=== PATIENT | male | born 1965 | race Caucasian/White ===

== ENCOUNTER → 2019-04-25 10:53 | Outpatient (BNVA) | payer OTHER, SELFPAY | PROVIDERS: Family Provider Family Medicine; PCP Nurse Practitioner Family; Visit Provider Internal Medicine Cardiovascular Disease | DX: I10 Essential (primary) hypertension (principal) | CPT/HCPCS: 80048; 83880 ==

== ENCOUNTER 2020-06-20 11:02 | Emergency (ER) | payer OTHER, MEDICARE, SELFPAY ==
[2020-06-20] VITALS (7 sets, daily range): BP systolic 117–153; BP diastolic 89–102; PULSE 86–89; RESP 12–18; TEMP 36.2; O2SAT 97–100; BMI 26.6
--- NOTE | 2020-06-20 11:20 | XR_ITS ---
WS: [id number] Portable AP upright chest, 06/20/2020 Clinical Data: sob Comparison: PA and lateral chest, 06/01/2018. Findings: No nodules, masses or effusions are seen. The heart is normal. The pulmonary vascularity is not increased. No pneumonia or pneumothorax is seen. Monitor leads are on the chest wall. XR/XR chest 1V portable [id number] Impression: Negative chest.
--- NOTE | 2020-06-20 11:20 | ECG_ITS ---
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 Measurements Intervals [place] Rate: 85 P: 68 CT: 162 QRS: 58 QRSD: 106 T: 175 QT: 383 QTc: 457 Interpretive Statements SINUS RHYTHM POSSIBLE LEFT ATRIAL ENLARGEMENT [-0.1mV P WAVE IN V1/V2] LEFT VENTRICULAR HYPERTROPHY AND ST-T CHANGE [VOLTAGE CRITERIA PLUS ST/T ABNORMALITY] Compared to ECG 05/31/2018 18:01:19 Ventricular premature complex(es) no longer present ST (T wave) deviation still present Electronically Signed On 06-20-2020 17:13:18 MECHANICAL MANUFACTURING TECHNICIAN by Miguel Colin M.D. [email or web address] [id number]
[2020-06-20 11:44] LABS: Basophils % 0.4 %; Eosinophils # 0.1 10^3/uL (0.0-0.8); Eosinophils % 1.3 %; Hematocrit 42.4 % (42.0-52.0); Hemoglobin 14.2 g/dL (11.7-16.6); Lymphocytes # 1.6 10^3/uL (0.8-4.8); Lymphocytes % 19.3 %; Mean Corpuscular HGB Conc 33.5 g/dL (30.0-36.0); Mean Corpuscular Hemoglobin 28.7 pg (28.0-34.0); Mean Corpuscular Volume 85.7 fL (80-94); Monocytes # 0.4 10^3/uL (0.2-0.9); Monocytes % 5.1 %; Neutrophils # 6.28 10^3/uL (1.8-7.7); Neutrophils % 73.8 %; Nucleated Red Blood Cells % 0 %; Platelet Count 187 10^3/cmm (130-400); Red Blood Count 4.95 10^6/uL (4.1-5.3); Red Cell Distribution Width 14.6 % (12.1-15.1); White Blood Count 8.5 10^3/uL (4.0-10.0)
[2020-06-20 12:02] LABS: INR 1.05 (0.8-1.2)
[2020-06-20 12:10] LABS: Alanine Aminotransferase 13 U/L (0-41); Albumin Level 3.9 g/dL (3.5-5.2); Alkaline Phosphatase 78 IU/L (40-130); Anion Gap 14.3 (5-19); Aspartate Amino Transferase 18 U/L (0-40); Blood Urea Nitrogen 19 mg/dL (6-20); Calcium 9.5 mg/dL (8.5-10.5); Carbon Dioxide 25 mmol/L (22-29); Chloride 100 mmol/L (98-107); Globulin 3.6 g/dL (1.3-4.6); Glomerular Filtration Rate 57.1 mL/min (90-130); Glucose 162 mg/dL (65-115); NT Pro B Type Natriuretic Pept 18913 pg/mL (0-125); Osmolality Calculated 288 mOsm/kg (285-295); Potassium 3.3 mmol/L (3.5-5.1); Sodium 136 mmol/L (136-145); Total Bilirubin 1.3 mg/dL (0.15-1.2); Total Protein 7.5 g/dL (6.6-8.7)
--- NOTE | 2020-06-20 12:21 | W.ED.SOB ---
HPI - SOB/Dyspnea General: Chief Complaint: Shortness of Breath/Dyspnea Stated Complaint: SOB Time Seen by Provider: 06/20/20 11:12 Source: patient Mode of arrival: ambulatory Limitations: no limitations History of Present Illness: HPI Narrative: 54-year-old male with history of CHF, COPD, pulmonary emboli, cardiomyopathy complaining of worsening shortness of breath, orthopnea and dyspnea on exertion over the past 3 to 4 days. No weight gain. No fever. He does have a productive cough?dark-colored sputum. No pleuritic chest pain. He has self discontinued Eliquis a few months ago. He also has not been taking his diuretics or carvedilol regularly. Records from the [place] show that all his prescriptions have sometime ago. Denies chest pain. No swelling. He has occasional wheezing. Symptoms are much worse with laying down and exertion. He took a double dose of Lasix yesterday, but did not have any relief. MD elicited complaint: shortness of breath and cough Onset (ago): day(s) Timing: constant Exacerbating factors: lying flat, exertion and coughing Associated symptoms: Reports chest congestion and orthopnea; Deny chest pain, fever(s), hemoptysis, lightheadedness, nausea, polyuria or vomiting Review of Systems General: Reports: 10 or more systems reviewed and unremarkable except in HPI and below Const: Denies: fever(s), chills, body aches or change in appetite Card: Reports: dyspnea on exertion and orthopnea; Denies: chest pain, irregular heart rhythm, edema, swelling of feet/ankles or lightheadedness Resp: Reports: dyspnea, productive cough, wheezing, change in phlegm color and chest congestion; Denies: pain on inspiration or hemoptysis GI: Denies: nausea, vomiting, heartburn or diarrhea Musc: Denies: neck pain or back pain Neuro: Denies: headache(s), numbness in extremities or weakness in extremities Endo: Denies: polyuria PFSH ED PFSH: Medical History Cardiomyopathy GERD (gastroesophageal reflux disease) HTN (hypertension) Pulmonary thromboembolism Surgical History History of back surgery (~1997) Family History Other Diabetes Hypertension Social History Smoking and tobacco status: current every day smoker Physical Exam Const: COMMON NORMALS: no acute distress, average body habitus and patient oriented x3 GENERAL APPEARANCE: cooperative and ill appearing; not diaphoretic HENMT: COMMON NORMALS: normocephalic HEAD & SCALP: normal to inspection and normocephalic FACE & SINUS: normal facial exam and face symmetric Eye: COMMON NORMALS: Equal, round and reactive pupils present, EOMs intact bilaterally, conjunctivae normal and no scleral icterus GENERAL EYE: appearance normal, both eyes and all related structures CONJUNCTIVA: Yes conjunctivae normal PUPIL: Yes Equal, round and reactive pupils present Resp: EFFORT & INSPECTION: Yes able to speak in complete sentences, Yes tachypneic, No respiratory distress, Yes labored, No stridor, No Actively coughing, No uses accessory muscles, No audible wheezes, No tripod positioning and No prolonged expiratory phase Cardio: COMMON NORMALS: regular rate, regular rhythm, S1 normal heart sound present and S2 normal heart sound present JUGULAR VENOUS DISTENTION: no JVD RATE: regular rate RHYTHM: regular rhythm HEART SOUNDS: S1 normal heart sound present and S2 normal heart sound present GI: COMMON NORMALS: Normal to inspection, nondistended, normoactive bowel sounds present INSPECTION: Yes normal to inspection AUSCULTATION: Yes normoactive bowel sounds PALPATION: Yes Soft to palpation, No Tenderness to palpation present (GI) and No Guarding due to palpation present (GI) : COMMON NORMALS: Yes no CVA tenderness BLADDER/KIDNEY EXAM: Yes no CVA tenderness Back/Pelvis: COMMON NORMALS: no CVA tenderness and thoracic and lumbar spine normal to inspection Extremity: COMMON NORMALS: no clubbing, cyanosis or edema GENERAL: Yes normal exam except as noted and No edema Neuro: COMMON NORMALS: patient oriented x3, no focal motor deficits and no sensory deficits noted Skin: COMMON NORMALS: no rashes or lesions noted, no wounds, turgor normal, no jaundice, no petechiae and no mottling GENERAL SKIN EXAM: no rashes or lesions noted and turgor normal Course Vital Signs: Vital signs: Vital Signs Temperature 97.1 F L 06/20/20 11:12 Pulse Rate 89 06/20/20 16:18 Respiratory Rate 18 06/20/20 16:18 Blood Pressure 117/89 06/20/20 16:18 Pulse Oximetry 98 06/20/20 16:18 MDM - SOB/Dyspnea MDM Narrative: Medical decision making narrative: 54-year-old male with history of pulmonary emboli, CHF, noncompliant with medications presenting with increased shortness of breath, orthopnea over the past 3 to 4 days. Echo 05/31/2018; EF 15 to 20%, severe diffuse hypokinesis EKG; normal sinus rhythm with rate of 85, MI 162, QRS 106, QTc 425, normal axis, LVH, deep T wave inversions in the inferior and lateral leads, ST depression in II and aVF. No previous EKG available for comparison, however cardiology note from 08/22/2019 describes similar changes in the inferior lateral leads as well as LVH, left atrial enlargement. CTA will be done to establish if there is residual or new pulmonary emboli since he has been off of his anticoagulation. Cardiac enzymes, BNP, IV diuresis if necessary. At this time he is not in any respiratory distress, is oxygenating well on room air, He also has a history of COPD and has had increased dark-colored phlegm production and wheezing. We will treat with IV steroids and p.o. antibiotics for possible COPD exacerbation. Chest x-ray did not show any acute infiltrates, effusions, or other acute changes compared to previous. IV Lasix, 40 mgX1, had good diuresis and improvement in dyspnea. Serial troponins stable. Will refill his meds for 30 days, instructed to follow-up with his PCP in the next 3 to 5 days Strict instructions to return if he develops fever, worsening difficulty breathing, chest pain, palpitations, or any other concerning symptoms. Differential Diagnosis: Shortness of Breath Differential Diagnosis: Likely acute exacerbation of chronic obstructive airways disease, congestive heart failure, community acquired pneumonia, asthma with exacerbation and pulmonary embolism Medical Records: Attestation: I reviewed the patient's medical records. Lab Data: Attestation: I reviewed the patient's lab results. Labs: Lab Results 06/20/20 06/20/20 06/20/20 Range/Units 11:35 11:35 11:35 WBC 8.5 (4.0-10.0) 10^3/ uL RBC 4.95 (4.1-5.3) 10^6/u L Hgb 14.2 (11.7-16.6) g/dL Hct 42.4 (42.0-52.0) % MCV 85.7 (80-94) fL MCH 28.7 (28.0-34.0) pg MCHC 33.5 (30.0-36.0) g/dL RDW 14.6 (12.1-15.1) % Plt Count 187 (130-400) 10^3/c mm MPV 10.0 (7.4-10.4) fL Neut % (Auto) 73.8 % Lymph % (Auto) 19.3 % [place] % (Auto) 5.1 % Eos % (Auto) 1.3 % Baso % (Auto) 0.4 % Neut # (Auto) 6.28 (1.8-7.7) 10^3/u L Lymph # (Auto) 1.6 (0.8-4.8) 10^3/u L [place] # (Auto) 0.4 (0.2-0.9) 10^3/u L Eos # (Auto) 0.1 (0.0-0.8) 10^3/u L Baso # (Auto) 0.0 (0.0-0.1) 10^3/u L Nucleated RBC % (a uto) 0 % Nucleated RBCs # 0.0 /100WBC PT 14.10 (12.1-14.9) SECO NDS INR 1.05 (0.8-1.2) Sodium 136 (136-145) mmol/L Potassium 3.3 L (3.5-5.1) mmol/L Chloride 100 (98-107) mmol/L Carbon Dioxide 25 (22-29) mmol/L Anion Gap 14.3 (5-19) BUN 19 (6-20) mg/dL Creatinine 1.3 H (0.7-1.2) mg/dL GFR Calculation 57.1 L (90-130) mL/min Glucose 162 H (65-115) mg/dL Calculated Osmolal ity 288 (285-295) mOsm/k g Calcium 9.5 (8.5-10.5) mg/dL Magnesium (1.7-2.3) mg/dL Total Bilirubin 1.3 H (0.15-1.2) mg/dL AST 18 (0-40) U/L ALT 13 (0-41) U/L Alkaline Phosphata se 78 (40-130) IU/L Troponin T Gen 5 n g/L (0-15) ng/L Troponin T 120 Min [place] (0-15) ng/L Delta Troponin T (0-10) ABS# NT-Pro-B Natriuret Pep 51999 H (0-125) pg/mL Total Protein 7.5 (6.6-8.7) g/dL Albumin 3.9 (3.5-5.2) g/dL Globulin 3.6 (1.3-4.6) g/dL 06/20/20 06/20/20 06/20/20 Range/Units 12:21 12:22 14:22 WBC (4.0-10.0) 10^3/ uL RBC (4.1-5.3) 10^6/u L Hgb (11.7-16.6) g/dL Hct (42.0-52.0) % MCV (80-94) fL MCH (28.0-34.0) pg MCHC (30.0-36.0) g/dL RDW (12.1-15.1) % Plt Count (130-400) 10^3/c mm MPV (7.4-10.4) fL Neut % (Auto) % Lymph % (Auto) % [place] % (Auto) % Eos % (Auto) % Baso % (Auto) % Neut # (Auto) (1.8-7.7) 10^3/u L Lymph # (Auto) (0.8-4.8) 10^3/u L [place] # (Auto) (0.2-0.9) 10^3/u L Eos # (Auto) (0.0-0.8) 10^3/u L Baso # (Auto) (0.0-0.1) 10^3/u L Nucleated RBC % (a uto) % Nucleated RBCs # /100WBC PT (12.1-14.9) SECO NDS INR (0.8-1.2) Sodium (136-145) mmol/L Potassium (3.5-5.1) mmol/L Chloride (98-107) mmol/L Carbon Dioxide (22-29) mmol/L Anion Gap (5-19) BUN (6-20) mg/dL Creatinine (0.7-1.2) mg/dL GFR Calculation (90-130) mL/min Glucose (65-115) mg/dL Calculated Osmolal ity (285-295) mOsm/k g Calcium (8.5-10.5) mg/dL Magnesium 1.5 L (1.7-2.3) mg/dL Total Bilirubin (0.15-1.2) mg/dL AST (0-40) U/L ALT (0-41) U/L Alkaline Phosphata se (40-130) IU/L Troponin T Gen 5 n g/L 37 H (0-15) ng/L Troponin T 120 Min [place] 36.15 H (0-15) ng/L Delta Troponin T -0.85 L (0-10) ABS# NT-Pro-B Natriuret Pep (0-125) pg/mL Total Protein (6.6-8.7) g/dL Albumin (3.5-5.2) g/dL Globulin (1.3-4.6) g/dL Discharge Plan Discharge Patient Disposition: Home Clinical Impression: Dyspnea due to congestive heart failure Cardiomyopathy Qualifiers: Cardiomyopathy type: unspecified Qualified Code(s): I42.9 - Cardiomyopathy, unspecified Congestive heart failure Qualifiers: Heart failure type: systolic Heart failure chronicity: acute on chronic Qualified Code(s): I50.23 - Acute on chronic systolic (congestive) heart failure Condition: Stable Prescriptions: New carvedilol 25 mg tablet 25 mg PO BID Qty: 60 RF: 0 Lasix 40 mg tablet 40 mg PO QAM Qty: 30 RF: 0 Entresto 24-26 mg tablet 1 tab PO BID Qty: 60 RF: 0 omeprazole 40 mg capsule,delayed release(DR/EC) 40 mg PO DAILY Qty: 30 RF: 0 spironolactone 25 mg tablet 25 mg PO QAM Qty: 30 RF: 0 Continued aspirin 81 mg Tablet,Delayed Release (Dr/Ec) 81 mg PO QAM RF: 0 Held Eliquis 5 mg tablet See Rx Instructions .ROUTE .COMPLEX RF: 0 Hold Instructions: hold until PCP follwowup Discontinued omeprazole 20 mg capsule,delayed release(DR/EC) 20 mg PO QAM RF: 0 carvedilol 25 mg tablet See Rx Instructions .ROUTE .COMPLEX RF: 0 furosemide [Lasix] 40 mg Tablet See Rx Instructions .ROUTE .COMPLEX RF: 0 spironolactone 25 mg Tablet See Rx Instructions .ROUTE .COMPLEX RF: 0 naproxen sodium [Aleve] 220 mg Tablet 440 mg PO PRN RF: 0 Entresto 24-26 mg tablet See Rx Instructions .ROUTE .COMPLEX RF: 0 Discharge Orders: Discharge ED (Routine); Ordered 06/20/20 Ordered By: Carol Reyes Referrals: Joao Hendrix FNP [Primary Care Provider] - Discharge Diet: Low Salt Discharge Activity: Increase activity as tolerated Patient Instructions: Heart Failure (ED) Activity Restrictions/Additional Instructions: Make sure to schedule follow-up appoint with your primary care doctor in the next 3 to 5 days. Take your medication every day as directed. Return immediately to the ER if you develop any chest pain, or if your shortness of breath worsens, you develop palpitations or fever, nausea, vomiting or any other concerning changes. Coding Level of Care Code ED Pet Counselor for Jasmina Fwd Exam Comprehensive
--- NOTE | 2020-06-20 12:31 | CT_ITS ---
WS: [id number] CTA OF THE CHEST WITH PULMONARY EMBOLISM PROTOCOL TECHNIQUE: High-resolution contrast enhanced CTA of the chest with coronal and sagittal reformatted i mages with pulmonary embolism protocol. MIP images are also reviewed. CLINICAL INFORMATION: hx of PE, worsening SOB, non compliant w/anticoag COMPARISON: CTA chest May 2018 DLP: 676.[address] scans at [facility] use at least one of these dose optimization techniques: automat ed exposure control; mA and/or kV adjustment per patient size (includes targeted exams where dose is matched to clinical indication); or iterative reconstruction. FINDINGS: Proximal main pulmonary arteries are normal. Normal segmental and subsegmental pulmonary arteries. No evidence of pulmonary embolus. Mild chronic emphysematous changes. No acute pulmonary infiltrates. No consolidation or pleural fluid . No focal pneumonia. A few prominent mediastinal and AP window lymph nodes unchanged likely reactive . No axillary lymphadenopathy. Adrenal glands are normal. Hypertrophic changes thoracic spine. CT/CT angio chest PE protcl [id number] IMPRESSION: 1. No evidence of pulmonary embolus. 2. Mild chronic emphysematous changes. Lungs are well aerated. No acute pulmon bonnie infiltrates. 3. Prominent anterior mediastinal and AP window lymph nodes unchanged from pre vious and likely reactive. Attempted Carol Reyes MD at 06/20/2020 1:16 PM.
[2020-06-20] MEDS: doxycycline 100 mg Tablet PO (12:32)
[2020-06-20] MEDS: potassium chloride oral liq 20 mEq/15 mL UDC 40 MEQ PO (12:32)
[2020-06-20] MEDS: FUROsemide 10 mg/mL SDV 4mL 40 MG IVP (12:39)
--- NOTE | 2020-06-20 12:54 | PC.PHAR ---
pts states the pt doesnt always take his medications-pts states the pt dced his eliquis a few months ago without talking to his dr-pts states the pt sometimes takes his lasix and spironolactone [place] medication as medications-rx written on 08/22/2019 for carvedilol 25mg bid the pt states he only takes once a day sometimes-entresto written on 11/28/19 for 1 tab bid-pt states he takes one tab once a day sometimes-
[2020-06-20] MEDS: iohexol 350 mg/mL 100 mL Btl IV (13:00)
[2020-06-20 13:09] LABS: Magnesium 1.5 mg/dL (1.7-2.3)
[2020-06-20 13:14] LABS: Troponin T (5th) Once 37 ng/L (0-15)
[2020-06-20 14:45] LABS: Troponin 5 2HR 36.15 ng/L (0-15)
[2020-06-20 14:48] LABS: Troponin 5 2HR Delta -0.85 ABS# (0-10)
--- NOTE | 2020-06-20 15:26 | ECG_ITS ---
[facility] Test Date: 2020-06-20 Pat Name: Hakan Black Department: Room: Gender: Male New Patient Escort: : 1965 Requested By: Carol Reyes Order Number: [id number] Funez MD: Miguel Colin M.D. 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 [id number]
== END 2020-06-20 16:20 | disposition home or self-care (01) ==
PROVIDERS: Emergency Provider Family Medicine; PCP Nurse Practitioner Family
DX: I11.0 Hypertensive heart disease with heart failure (principal); I50.23 Acute on chronic systolic (congestive) heart failure; I42.9 Cardiomyopathy, unspecified; R06.00 Dyspnea, unspecified; Z79.82 Long term (current) use of aspirin; Z79.01 Long term (current) use of anticoagulants; F17.210 Nicotine dependence, cigarettes, uncomplicated
CPT/HCPCS: 36415; 71045; 71275; 80053; 83735; 83880; 84484; 85025; 85610; 93005; 96374; 96375; 99284; J1940; J2930; J3475; Q9967

== ENCOUNTER 2020-07-10 01:11 | Emergency (ER) | payer OTHER, MEDICARE, SELFPAY ==
[2020-07-10 01:28] VITALS: BP 145/101; PULSE 90; RESP 18; TEMP 36.9; O2SAT 99; BMI 25.0
--- NOTE | 2020-07-10 01:33 | ECG_ITS ---
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 Measurements Intervals [place] Rate: 98 P: 68 DE: 132 QRS: 24 QRSD: 104 T: 126 QT: 383 QTc: 489 Interpretive Statements SINUS RHYTHM WITH OCCASIONAL VENTRICULAR PREMATURE COMPLEXES POSSIBLE LEFT ATRIAL ENLARGEMENT [-0.1mV P WAVE IN V1/V2] LEFT VENTRICULAR HYPERTROPHY AND ST-T CHANGE [VOLTAGE CRITERIA PLUS ST/T ABNORMALITY] Compared to ECG 06/20/2020 13:35:15 Ventricular premature complex(es) now present ST (T wave) deviation still present Electronically Signed On 07-10-2020 19:47:43 CDT by Marek Guadalupe M.D. [id number]
--- NOTE | 2020-07-10 01:33 | XR_ITS ---
WS: [id number] PORTABLE CHEST HISTORY: sob COMPARISON: 06/20/2020 Mild expansion of the lungs. There are new scattered areas of interstitial thickening and subtle opac ifications. Probably due to pneumonitis. No dense consolidation or pneumonia. No pleural effusion or pneumothorax. Cardiac size: Normal. Mediastinum/Aorta: Normal mediastinum. No osseous abnormality seen. XR/XR chest 1V portable [id number] IMPRESSION: New interstitial thickening and subtle opacifications. Probably related to pneu monitis or mild edema.
--- NOTE | 2020-07-10 01:37 | ED_ITS ---
HPI - SOB/Dyspnea General: Chief Complaint: Shortness of Breath/Dyspnea Stated Complaint: SOB Time Seen by Provider: 07/10/20 01:12 Source: patient Mode of arrival: ambulatory Limitations: no limitations History of Present Illness: HPI Narrative: 54-year-old male 54-year-old male has a history of CHF, noncompliant with his medicines. He states he been taking 40 mg of Lasix daily states that he has had shortness of breath especially at night when he lays flat. Patient is currently in no distress here and is 1% on room air. Denies any chest pain. States has had no fever or cough. He states that symptoms are mainly when he lays flat. MD elicited complaint: shortness of breath Associated symptoms: Deny abdominal pain, chest pain, fever(s), nausea or vomiting Review of Systems Const: Denies: fever(s), chills, body aches or change in appetite Eyes: Denies: blurry vision or eye discomfort ENMT: Denies: throat pain or dental pain Card: Denies: chest pain Resp: Reports: dyspnea GI: Denies: abdominal pain, nausea, vomiting or diarrhea : Denies: dysuria Musc: Denies: neck pain or back pain Skin/Breast: Denies: rash Neuro: Denies: headache(s) Psych: Denies: depression Yevgeniy/Lymph: Denies: easy bruising All/Imm: Denies: urticaria PFSH ED PFSH: Medical History Cardiomyopathy GERD (gastroesophageal reflux disease) HTN (hypertension) Pulmonary thromboembolism Surgical History History of back surgery (~1997) Family History Other Diabetes Hypertension Social History Smoking and tobacco status: current every day smoker Physical Exam Const: COMMON NORMALS: no acute distress, patient oriented x3 and healthy appearing HENMT: COMMON NORMALS: normocephalic and atraumatic HEAD & SCALP: normocephalic and atraumatic Eye: COMMON NORMALS: Equal, round and reactive pupils present and EOMs intact bilaterally PUPIL: Yes Equal, round and reactive pupils present Neck/C-Spine: COMMON NORMALS: full ROM and supple Chest: COMMONS NORMALS: normal inspection of the chest and normal palpation of entire chest wall Resp: COMMON NORMALS: normal respiratory effort, No retractions, No use of accessory muscles and clear to auscultation bilaterally AUSCULTATION: clear t o auscultation bilaterally Cardio: COMMON NORMALS: regular rate, regular rhythm and No murmurs present (Cardio) RATE: regular rate RHYTHM: regular rhythm GI: COMMON NORMALS: Normal to inspection, nondistended, normoactive bowel sounds present, Soft to palpation, non-tender and no masses PALPATION: Yes Soft to palpation Extremity: COMMON NORMALS: normal to inspection and full ROM Neuro: COMMON NORMALS: patient oriented x3, moves all extremities and no focal motor deficits Psych: COMMON NORMALS: mental status grossly normal, Normal thought process present and cooperative THOUGHT PROCESS: Normal thought process present Skin: COMMON NORMALS: no rashes or lesions noted and no wounds GENERAL SKIN EXAM: no rashes or lesions noted Course Vital Signs: Vital signs: Vital Signs Temperature 98.4 F 07/10/20 01:28 Pulse Rate 90 07/10/20 01:28 Respiratory Rate 18 07/10/20 01:28 Blood Pressure 145/101 07/10/20 01:28 Pulse Oximetry 99 07/10/20 01:28 MDM - SOB/Dyspnea MDM Narrative: Medical decision making narrative: CoMela is a 54-year-old male has a long history of congestive heart failure. He states he feels improved here after IV Lasix. Patient's pulse ox has been in the upper 90s the whole time here and has been in no respiratory distress. X-ray shows no increased pulmonary edema. We will increase his Lasix from 40 to 80 mg a day. He is to take daily weights he has increasing shortness of breath or weight gain he is return to ER immediately. He is to follow-up with cardiology as scheduled in 2 weeks. He understands agrees to plan. Lab Data: Labs: Lab Results 07/10/20 07/10/20 Range/Units 01:35 01:35 WBC 9.5 (4.0-10.0) 10^3/ uL RBC 4.71 (4.1-5.3) 10^6/u L Hgb 13.4 (11.7-16.6) g/dL Hct 40.6 L (42.0-52.0) % MCV 86.2 (80-94) fL MCH 28.5 (28.0-34.0) pg MCHC 33.0 (30.0-36.0) g/dL RDW 14.6 (12.1-15.1) % Plt Count 199 (130-400) 10^3/c mm MPV 9.4 (7.4-10.4) fL Neut % (Auto) 76.3 % Lymph % (Auto) 17.1 % [place] % (Auto) 4.2 % Eos % (Auto) 1.8 % Baso % (Auto) 0.3 % Neut # (Auto) 7.26 (1.8-7.7) 10^3/u L Lymph # (Auto) 1.6 (0.8-4.8) 10^3/u L [place] # (Auto) 0.4 (0.2-0.9) 10^3/u L Eos # (Auto) 0.2 (0.0-0.8) 10^3/u L Baso # (Auto) 0.0 (0.0-0.1) 10^3/u L Nucleated RBC % (a uto) 0 % Nucleated RBCs # 0.0 /100WBC Sodium 136 (136-145) mmol/L Potassium 3.3 L (3.5-5.1) mmol/L Chloride 99 (98-107) mmol/L Carbon Dioxide 26 (22-29) mmol/L Anion Gap 14.3 (5-19) BUN 17 (6-20) mg/dL Creatinine 1.3 H (0.7-1.2) mg/dL GFR Calculation 57.1 L (90-130) mL/min Glucose 152 H (65-115) mg/dL Calculated Osmolal ity 287 (285-295) mOsm/k g Calcium 9.0 (8.5-10.5) mg/dL Total Bilirubin 1.0 (0.15-1.2) mg/dL AST 24 (0-40) U/L ALT 32 (0-41) U/L Alkaline Phosphata se 93 (40-130) IU/L NT-Pro-B Natriuret Pep 21238 H (0-125) pg/mL Total Protein 7.0 (6.6-8.7) g/dL Albumin 3.7 (3.5-5.2) g/dL Globulin 3.3 (1.3-4.6) g/dL Imaging Data^: CXR: Attestation: I personally reviewed and interpreted this imaging study as follows: My impression: no acute abnormality EKG Data^: EKG 1: Attestation: I personally reviewed and interpreted this EKG as follows: EKG Interpretation Date: 07/10/20 EKG interpretation time: 01:38 Interpretation: nsr hr [address] or t wave abnormalities qrs 104 qtc 438 Discharge Plan Discharge Patient Disposition: Home Clinical Impression: Congestive heart failure Qualifiers: Heart failure type: unspecified Heart failure chronicity: acute on chronic Qualified Code(s): I50.9 - Heart failure, unspecified Condition: Stable Prescriptions: Changed Lasix 40 mg tablet 80 mg PO QAM Qty: 30 RF: 0 No Action Eliquis 5 mg tablet See Rx Instructions .ROUTE .COMPLEX RF: 0 Hold Instructions: hold until PCP follwowup aspirin 81 mg Tablet,Delayed Release (Dr/Ec) 81 mg PO QAM RF: 0 carvedilol 25 mg tablet 25 mg PO BID Qty: 60 RF: 0 Entresto 24-26 mg tablet 1 tab PO BID Qty: 60 RF: 0 omeprazole 40 mg capsule,delayed release(DR/EC) 40 mg PO DAILY Qty: 30 RF: 0 spironolactone 25 mg tablet 25 mg PO QAM Qty: 30 RF: 0 Discharge Orders: Discharge ED (Routine); Ordered 07/10/20 Ordered By: Aniket García Referrals: Joao Hendrix FNP [Primary Care Provider] - Silvana Verma MD [Physician] - 1-3 days Discharge Diet: Advance as tolerated Discharge Activity: Resume usual activity Patient Instructions: Heart Failure (ED) Coding Level of Care Code ED Windows Application Packager for Chg Fwd Exam Comprehensive
[2020-07-10 01:44] LABS: Basophils % 0.3 %; Eosinophils # 0.2 10^3/uL (0.0-0.8); Eosinophils % 1.8 %; Hematocrit 40.6 % (42.0-52.0); Hemoglobin 13.4 g/dL (11.7-16.6); Lymphocytes # 1.6 10^3/uL (0.8-4.8); Lymphocytes % 17.1 %; Mean Corpuscular Hemoglobin 28.5 pg (28.0-34.0); Mean Corpuscular Volume 86.2 fL (80-94); Mean Platelet Volume 9.4 fL (7.4-10.4); Monocytes # 0.4 10^3/uL (0.2-0.9); Monocytes % 4.2 %; Neutrophils # 7.26 10^3/uL (1.8-7.7); Neutrophils % 76.3 %; Nucleated Red Blood Cells % 0 %; Platelet Count 199 10^3/cmm (130-400); Red Blood Count 4.71 10^6/uL (4.1-5.3); Red Cell Distribution Width 14.6 % (12.1-15.1); White Blood Count 9.5 10^3/uL (4.0-10.0)
[2020-07-10] MEDS: FUROsemide 10 mg/mL SDV 10mL 80 MG IVP (01:50)
[2020-07-10 02:07] LABS: Alanine Aminotransferase 32 U/L (0-41); Albumin Level 3.7 g/dL (3.5-5.2); Alkaline Phosphatase 93 IU/L (40-130); Anion Gap 14.3 (5-19); Aspartate Amino Transferase 24 U/L (0-40); Blood Urea Nitrogen 17 mg/dL (6-20); Carbon Dioxide 26 mmol/L (22-29); Chloride 99 mmol/L (98-107); Globulin 3.3 g/dL (1.3-4.6); Glomerular Filtration Rate 57.1 mL/min (90-130); Glucose 152 mg/dL (65-115); NT Pro B Type Natriuretic Pept 24698 pg/mL (0-125); Osmolality Calculated 287 mOsm/kg (285-295); Potassium 3.3 mmol/L (3.5-5.1); Sodium 136 mmol/L (136-145)
[2020-07-10 03:02] VITALS: BP 142/118; PULSE 96; RESP 16; O2SAT 99
== END 2020-07-10 03:00 | disposition home or self-care (01) ==
PROVIDERS: Emergency Provider Emergency Medicine; PCP Nurse Practitioner Family
DX: I11.0 Hypertensive heart disease with heart failure (principal); I50.9 Heart failure, unspecified; Z79.01 Long term (current) use of anticoagulants; Z79.82 Long term (current) use of aspirin; F17.210 Nicotine dependence, cigarettes, uncomplicated
CPT/HCPCS: 71045; 80053; 83880; 85025; 93005; 96374; 99283; J1940

== ENCOUNTER → 2020-07-31 16:23 | Outpatient (BNVA) | payer OTHER, MEDICARE, SELFPAY | PROVIDERS: PCP Nurse Practitioner Family; Visit Provider Internal Medicine Cardiovascular Disease | DX: I42.9 Cardiomyopathy, unspecified (principal); R06.00 Dyspnea, unspecified; I10 Essential (primary) hypertension; I26.99 Other pulmonary embolism without acute cor pulmonale; K21.9 Gastro-esophageal reflux disease without esophagitis; F17.200 Nicotine dependence, unspecified, uncomplicated | CPT/HCPCS: 80048; 83735; 83880 ==

== ENCOUNTER → 2020-08-21 08:48 | Outpatient (BNVA) | payer OTHER, MEDICARE, SELFPAY | PROVIDERS: PCP Nurse Practitioner Family; Visit Provider Internal Medicine Cardiovascular Disease | DX: I10 Essential (primary) hypertension (principal); I42.9 Cardiomyopathy, unspecified | CPT/HCPCS: 80048; 83735; 83880 ==

== ENCOUNTER → 2020-09-12 09:22 | Outpatient (BNVA) | payer OTHER, MEDICARE, SELFPAY | PROVIDERS: PCP Nurse Practitioner Family; Visit Provider Internal Medicine Cardiovascular Disease | DX: I10 Essential (primary) hypertension (principal); I42.9 Cardiomyopathy, unspecified | CPT/HCPCS: 80048; 83735; 83880 ==

== ENCOUNTER 2020-09-23 14:31 | Outpatient (CLI) | payer OTHER, MEDICARE, SELFPAY ==
--- NOTE | 2020-09-23 15:00 | USCV_ITS ---
Hakan Black Age: 54 Gender: M : 1965 Exam Date: 09/23/2020 14:53 Ordering Phys: Silvana Verma MD ([email or web address]) Technologist: Steve Emanuel Exam Location: [facility] [place] Indication: CHF BP: 150 / 80 HR: 84 Rhythm: Sinus Technical Quality: Adequate MEASUREMENTS (Male / Female) Normal Values 2D ECHO LV Diastolic Diameter PLAX 6.8 cm 4.2 - 5.9 / 3.9 - 5.3 cm LV Systolic Diameter PLAX 5.7 cm IVS Diastolic Thickness 1.1 cm 0.6 - 1.0 / 0.6 - 0.9 cm IVS Systolic Thickness 1.2 cm LVPW Diastolic Thickness 1.1 cm 0.6 - 1.0 / 0.6 - 0.9 cm LVPW Systolic Thickness 1.5 cm LVOT Diameter 2.1 cm LV Ejection Fraction 2D Teich 33.5 % LV Ejection Fraction MOD 2C 19.5 % LV Ejection Fraction 2C AL 17.5 % LA Diameter 3.8 cm LA Width 3.7 cm LA Height 5.6 cm RA Width 3.4 cm RA Height 4.6 cm Aorta at Sinotubular Diameter 2.9 cm DOPPLER AV Peak Velocity 113.0 cm/s LVOT Peak Velocity 53.0 cm/s AV Area Cont Eq vti 1.6 cm squared AV Area Cont Eq pk 1.6 cm squared MV Area PHT 5.0 cm squared Mitral E to A Ratio 2.6 MV E' Velocity 32.5 cm/s Mitral E to MV E' Ratio 16.2 Mitral E to LV E' Lateral Ratio 15.0 Mitral E to LV E' Septal Ratio 18.1 TR Peak Velocity 241.0 cm/s TR Peak Gradient 23.2 mmHg TV Peak E Velocity 93.0 cm/s Right Atrial Pressure 3.0 mmHg Pulmonary Artery Systolic Pressu 26.2 mmHg PV Peak Velocity 56.0 cm/s FINDINGS Left Ventricle Moderately dilated left ventricle cavity size. Severely decreased left ventricular systolic function. Left ventricular ejection fraction is estimated at 20 %. Severe global left ventricle hypokinesis. Abnormal septal motion consistent with conduction abnormality. Abnormal diastolic function. No evidence of left ventricle apical thrombus. Right Ventricle Normal right ventricular size and systolic function. Right ventricular systolic pressure 26.2 mmHg. Right Atrium Normal right atrial size. Left Atrium Mildly increased left atrial size. Mitral Valve Thickened mitral valve. No mitral valve stenosis. Trace mitral valve regurgitation. Aortic Valve Trileaflet aortic valve. No aortic valve stenosis. No aortic valve regurgitation. Tricuspid Valve Structurally normal tricuspid valve. Trace tricuspid valve regurgitation. Pulmonic Valve Pulmonic valve not well visualized. Pericardium No pericardial effusion. Aorta Aorta not well visualized. CONCLUSIONS 1. Ultrasound enhancing agent Optison was used per Protocol. 2. Moderately dilated left ventricle cavity size. Severely decreased left ventricular systolic function. Left ventricular ejection fraction is estimated at 20 %. Severe global left ventricle hypokinesis. Abnormal diastolic function. No evidence of left ventricle apical thrombus. 3. Normal right ventricular size and systolic function. 4. No significant valvular abnormality. 5. No significant change when compared to old echocardiogram dated 11/29/2018. Silvana Verma MD (Electronically Signed) Final Date: 23 September 2020 16:55 S
[2020-09-23] MEDS: perflutren protein-a microsphr 0.22 mg/mL SDV 3 mL IV (15:16)
== END 2020-09-23 14:32 | disposition home or self-care (01) ==
LOC: RAD 14:34
PROVIDERS: PCP Nurse Practitioner Family; Visit Provider Internal Medicine Cardiovascular Disease
DX: I42.9 Cardiomyopathy, unspecified (principal); I50.9 Heart failure, unspecified
CPT/HCPCS: C8929

== ENCOUNTER → 2020-10-09 13:29 | Outpatient (BNVA) | payer OTHER, MEDICARE, SELFPAY | PROVIDERS: Visit Provider Nurse Practitioner Family | DX: Z20.822 Contact with and (suspected) exposure to COVID-19 (principal); J06.9 Acute upper respiratory infection, unspecified | CPT/HCPCS: 87635 ==

== ENCOUNTER → 2020-10-23 09:21 | Outpatient (BNVA) | payer OTHER, MEDICARE, SELFPAY | PROVIDERS: Visit Provider Internal Medicine Cardiovascular Disease | DX: Z01.818 Encounter for other preprocedural examination (principal); Z20.822 Contact with and (suspected) exposure to COVID-19 | CPT/HCPCS: 87635 ==

== ENCOUNTER 2020-10-28 07:00 | Day surgery (SDC) | payer OTHER, MEDICARE, SELFPAY ==
[2020-10-23 11:37] VITALS: BMI 24.7
[2020-10-23 12:17] LABS: Basophils % 0.6 %; Eosinophils # 0.2 10^3/uL (0.0-0.8); Eosinophils % 2.5 %; Hematocrit 39.5 % (42.0-52.0); Lymphocytes # 2.1 10^3/uL (0.8-4.8); Mean Corpuscular HGB Conc 32.9 g/dL (30.0-36.0); Mean Corpuscular Hemoglobin 28.4 pg (28.0-34.0); Mean Corpuscular Volume 86.4 fL (80-94); Mean Platelet Volume 10.3 fL (7.4-10.4); Monocytes # 0.5 10^3/uL (0.2-0.9); Monocytes % 7.4 %; Neutrophils # 4.23 10^3/uL (1.8-7.7); Neutrophils % 59.2 %; Nucleated Red Blood Cells % 0 %; Platelet Count 223 10^3/cmm (130-400); Red Blood Count 4.57 10^6/uL (4.1-5.3); Red Cell Distribution Width 15.6 % (12.1-15.1); White Blood Count 7.1 10^3/uL (4.0-10.0)
[2020-10-23 12:37] LABS: Anion Gap 15.1 (5-19); Blood Urea Nitrogen 32 mg/dL (6-20); Calcium 8.8 mg/dL (8.5-10.5); Carbon Dioxide 23 mmol/L (22-29); Chloride 100 mmol/L (98-107); Glomerular Filtration Rate 41.9 mL/min (90-130); Glucose 183 mg/dL (65-115); Osmolality Calculated 290 mOsm/kg (285-295); Potassium 4.1 mmol/L (3.5-5.1); Sodium 134 mmol/L (136-145)
--- NOTE | 2020-10-24 06:22 | P.ANESASSM_ITS ---
Pre-Anesthetic Assessment Pre-Anesthetic Assessment: Height/Weight: Height 1.85 m Weight 85.275 kg Proposed Procedure: Operation Date: 10/28/20 10:50 Proposed Procedures p Defibrillator Placement(Not Applicable) - Kyle Leslie MD Was Beta Bk taken within 24 hours: Yes Was Clonidine taken within 24 hours: N/A Social: Social History: Tobacco and No alcohol Exam: Pre-Anes Outpt Exam: alert, oriented x 3 and regular rate & rhythm Airway: Submandibular: WNL Cervical ROM: WNL MP: 2 Dentition: False Pulmonary: Pulmonary: COPD CV/HEM: CV/HEM: CAD, CHF (EF 15-20%) and HTN Comments: PE : : Chronic renal Insufficiency GI: GI: GERD Anesthetic Plan: ASA status: 4 Anesthesia: MAC Risk of > 500 ml blood loss (7ml/kg in children): No PFSH Anesthesia PFSH: Medical History Cardiomyopathy GERD (gastroesophageal reflux disease) HTN (hypertension) Pulmonary thromboembolism Surgical History History of back surgery (~1997) Family History Other Diabetes Hypertension Social History Alcohol intake: current Alcohol intake frequency: other Data Anesthesia CBC & Chem 7: 10/23/20 11:43 10/23/20 11:43 Other Labs: Laboratory Results - last 48 hr 10/23/20 10/23/20 11:43 11:43 WBC 7.1 RBC 4.57 Hgb 13.0 Hct 39.5 L MCV 86.4 MCH 28.4 MCHC 32.9 RDW 15.6 H Plt Count 223 MPV 10.3 Neut % (Auto) 59.2 Lymph % (Auto) 30.0 [place] % (Auto) 7.4 Eos % (Auto) 2.5 Baso % (Auto) 0.6 Neut # (Auto) 4.23 Lymph # (Auto) 2.1 [place] # (Auto) 0.5 Eos # (Auto) 0.2 Baso # (Auto) 0.0 Nucleated RBC % (auto) 0 Nucleated RBCs # 0.0 Sodium 134 L Potassium 4.1 Chloride 100 Carbon Dioxide 23 Anion Gap 15.1 BUN 32 H Creatinine 1.7 H GFR Calculation 41.9 L Glucose 183 H Calculated Osmolality 290 Calcium 8.8 Cardiac Studies: Echocardiogram 09/23/20
[2020-10-28 07:20] VITALS: BP 121/83; PULSE 84; RESP 18; TEMP 36.2; O2SAT 99
[2020-10-28] MEDS: sodium chloride 0.9% 1,000 ML 30 ML IV (07:32)
--- NOTE | 2020-10-28 08:05 | P.ANESUD_ITS ---
Pre-Anesthetic Update Pre-Anesthetic Assessment: Date of Surgery/Procedure: 10/28/20 Preop Annmarie gnosis: Cardiomyopathy Proposed Procedure: Operation Date: 10/28/20 08:50 Proposed Procedures p Defibrillator Placement(Not Applicable) - Kyle Leslie MD Any changes to Pre-Anesthetic Assessment?: No Last Intake: Intake Last Liquid Date 10/27/20 Last Liquid Time 20:00 Last Solid Date 10/28/20 Last Solid Time 20:00 Vitals: Temperature 97.1 F L 10/28/20 07:20 Temperature Source Temporal Artery S can 10/28/20 07:20 Pulse Rate 84 10/28/20 07:20 Respiratory Rate 18 10/28/20 07:20 Blood Pressure 121/83 10/28/20 07:20 Blood Pressure Esmer n 95 10/28/20 07:20 Pulse Oximetry 99 10/28/20 07:20 Oxygen Delivery Me thod 10/28/20 07:23 Exam: Pre-Anes Outpt Exam: alert, oriented x 3, clear to auscultation bilaterally and regular rate & rhythm Other Pertinent Information: Other Pertinent Information: carvedilol this morning Cardiac Studies: Echocardiogram 09/23/20
--- NOTE | 2020-10-28 09:30 | PC.NURSE ---
PT RELEASED HOME PT AND MADE DECISION TO RESCHEDULE SURGERY DUE TO THE UNKNOWN BED SITUATION. PILO MCKEON STATES THAT SHE LEFT A MESSAGE WITH SHELBY CHARLES'S NURSE ABOUT RESCHEDULING SURGERY.
== END 2020-10-28 10:00 ==
PROVIDERS: Anesthesiology; Visit Provider Thoracic Surgery (Cardiothoracic Vascular Surgery)
PROC: 0JH608Z Insertion of Defibrillator Generator into Chest Subcutaneous Tissue and Fascia, Open Approach (ICD-10-PCS; CPT 33249; principal; 2020-10-28 08:40)
DX: Z01.818 Encounter for other preprocedural examination (principal)
CPT/HCPCS: 80048; 85025; J2370; J2704; J3010; J3490; J7030

== ENCOUNTER 2020-11-25 06:04 | Day surgery (SDC) | payer OTHER, MEDICARE, SELFPAY ==
--- NOTE | 2020-11-20 10:09 | ECG_ITS ---
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 Measurements Intervals [place] Rate: 78 P: 75 NE: 155 QRS: 51 QRSD: 103 T: 134 QT: 395 QTc: 451 Interpretive Statements SINUS RHYTHM POSSIBLE LEFT ATRIAL ENLARGEMENT [-0.1mV P WAVE IN V1/V2] LEFT VENTRICULAR HYPERTROPHY AND ST-T CHANGE [VOLTAGE CRITERIA PLUS ST/T ABNORMALITY] Compared to ECG 07/10/2020 01:38:09 Ventricular premature complex(es) no longer present ST (T wave) deviation still present Electronically Signed On 11-21-2020 10:01:33 CDT by Silvana Verma M.D. [email or web address]
[2020-11-20 10:13] VITALS: BMI 26.2
[2020-11-20 10:47] LABS: Add Urine Microscopic? NO; Charge for UA Resulting for Rev
[2020-11-20 10:54] LABS: Basophils # 0.1 10^3/uL (0.0-0.1); Basophils % 0.8 %; Eosinophils # 0.3 10^3/uL (0.0-0.8); Hematocrit 40.4 % (42.0-52.0); Hemoglobin 13.1 g/dL (11.7-16.6); Lymphocytes # 2.2 10^3/uL (0.8-4.8); Lymphocytes % 32.4 %; Mean Corpuscular HGB Conc 32.4 g/dL (30.0-36.0); Mean Corpuscular Hemoglobin 29.4 pg (28.0-34.0); Mean Corpuscular Volume 90.6 fL (80-94); Mean Platelet Volume 9.7 fL (7.4-10.4); Monocytes # 0.5 10^3/uL (0.2-0.9); Monocytes % 7.5 %; Neutrophils % 54.1 %; Nucleated Red Blood Cells % 0 %; Platelet Count 176 10^3/cmm (130-400); Red Blood Count 4.46 10^6/uL (4.1-5.3); Red Cell Distribution Width 16.5 % (12.1-15.1); White Blood Count 6.6 10^3/uL (4.0-10.0)
[2020-11-20 11:04] LABS: Bilirubin Urine Neg (Negative); Blood Urine Neg (Negative); Glucose Urine UA Norm (Normal); Ketones Urine Negative (Negative); Leukocyte Esterase Urine Negative (Negative); Nitrate Urine Negative (Negative); Protein Urine Neg (Negative); Specific Gravity, Urine 1.015 (1.005-1.030); Urine Appearance Clear (CLEAR); Urine Color Yellow (Yellow); Urobilinogen Urine Norm (Negative); pH Urine 5 (5-7)
[2020-11-20 11:22] LABS: Anion Gap 11.3 (5-19); Blood Urea Nitrogen 18 mg/dL (6-20); Carbon Dioxide 27 mmol/L (22-29); Chloride 105 mmol/L (98-107); Glomerular Filtration Rate 52.2 mL/min (90-130); Glucose 103 mg/dL (65-115); Osmolality Calculated 290 mOsm/kg (285-295); Potassium 4.3 mmol/L (3.5-5.1); Sodium 139 mmol/L (136-145)
--- NOTE | 2020-11-20 14:26 | ANES.PREANE2 ---
Pre-Anesthetic Assessment Pre-Anesthetic Assessment: Height/Weight: Height 1.85 m Weight 90.265 kg Preop Diagnosis: Medically refractory cardiomyopathy Proposed Procedure: Operation Date: 11/25/20 08:55 Proposed Procedures p Defibrillator Placement(Not Applicable) - Kyle Leslie MD Was Beta Bk taken within 24 hours: Yes Was Clonidine taken within 24 hours: N/A Social: Social History: Tobacco and No alcohol Exam: Pre-Anes Outpt Exam: alert, oriented x 3 and regular rate & rhythm Airway: Submandibular: WNL Cervical ROM: WNL MP: 2 Dentition: False Pulmonary: Pulmonary: COPD CV/HEM: CV/HEM: CHF ( EF 18-23% ), HTN and PVD Comments: PE GI: GI: GERD Anesthetic Plan: ASA status: 3 Anesthesia: MAC Risk of > 500 ml blood loss (7ml/kg in children): No PFSH Anesthesia PFSH: Medical History Cardiomyopathy GERD (gastroesophageal reflux disease) HTN (hypertension) Pulmonary thromboembolism Surgical History History of back surgery (~1997) Family History Other Diabetes Hypertension Social History Alcohol intake: current Alcohol intake frequency: other Data Anesthesia CBC & Chem 7: 11/20/20 10:25 11/20/20 10:25 Other Labs: Laboratory Results - last 48 hr 11/20/20 11/20/20 11/20/20 10:25 10:25 10:27 WBC 6.6 RBC 4.46 Hgb 13.1 Hct 40.4 L MCV 90.6 MCH 29.4 MCHC 32.4 RDW 16.5 H Plt Count 176 MPV 9.7 Neut % (Auto) 54.1 Lymph % (Auto) 32.4 [place] % (Auto) 7.5 Eos % (Auto) 5.0 Baso % (Auto) 0.8 Neut # (Auto) 3.60 Lymph # (Auto) 2.2 [place] # (Auto) 0.5 Eos # (Auto) 0.3 Baso # (Auto) 0.1 Nucleated RBC % (auto) 0 Nucleated RBCs # 0.0 Sodium 139 Potassium 4.3 Chloride 105 Carbon Dioxide 27 Anion Gap 11.3 BUN 18 Creatinine 1.4 H GFR Calculation 52.2 L Glucose 103 Calculated Osmolality 290 Calcium 9.0 Urine Color Yellow Urine Appearance Clear Urine pH 5 Ur Specific [place] 1.015 Urine Protein Neg Urine Glucose (UA) Norm Urine Ketones Negative Urine Blood Neg Urine Nitrate Negative Urine Bilirubin Neg Urine Urobilinogen Norm Ur Leukocyte Esterase Negative Cardiac Studies: Echocardiogram 09/23/20
[2020-11-25] VITALS (23 sets, daily range): BP systolic 121–152; BP diastolic 80–102; PULSE 54–90; RESP 4–20; TEMP 36.3–36.6; O2SAT 95–100
--- NOTE | 2020-11-25 | SCC_ITS ---
Procedure Done: Automatic implantable cardiac defibrillator placement 109.6 seconds of fluoroscopic guidance, for a cumulative dose of 23.82 mGy, was provided to Dr. Leslie by the radiology department. C-arm images of the chest were saved for the patient's permanent record. [facility]
--- NOTE | 2020-11-25 05:46 | XRR_ITS ---
PROCEDURE INFORMATION: Exam: XR Chest Exam date and time: 11/25/2020 5:46 AM Age: 55 years old Clinical indication: Device placement; Other: Aicd implantation; Prior surgery; Surgery date: Post-operative (0-2 days) TECHNIQUE: Imaging protocol: XR of the chest. Views: 1 view. COMPARISON: CR XR chest 1V portable [id number] 07/10/2020 1:48 AM FINDINGS: Lungs: Unremarkable. No consolidation. Pleural spaces: Unremarkable. No pleural effusion. No pneumothorax. Heart/Mediastinum: Unremarkable. No cardiomegaly. Bones/joints: Degenerative changes of the spine seen. XR/XR chest 1V portable [id number] IMPRESSION: No evidence of active cardiopulmonary disease.
--- NOTE | 2020-11-25 05:46 | SC_ITS ---
WS: [id number] C-ARM RADIOGRAPHS CHEST; 2 IMAGES HISTORY: AICD implantation COMPARISON: None available. Intraoperative imaging during AICD placement. SC/C-arm FL for Pacemaker IMPRESSION: Intraoperative imaging during AICD placement.
[2020-11-25] MEDS: sodium chloride 0.9% 1,000 ML 30 ML IV (06:31)
--- NOTE | 2020-11-25 06:37 | P.ANESUD_ITS ---
Pre-Anesthetic Update Pre-Anesthetic Assessment: Date of Surgery/Procedure: 11/25/20 Preop Annmarie gnosis: Medically refractory cardiomyopathy Proposed Procedure: Operation Date: 11/25/20 07:00 Proposed Procedures p Defibrillator Placement(Not Applicable) - Kyle Leslie MD Any changes to Pre-Anesthetic Assessment?: No Last Intake: Intake Last Liquid Date 11/24/20 Last Liquid Time 19:00 Last Solid Date 11/24/20 Last Solid Time 19:00 Vitals: Temperature 97.6 F 11/25/20 06:15 Temperature Source Temporal Artery S can 11/25/20 06:15 Pulse Rate 90 11/25/20 06:15 Respiratory Rate 18 11/25/20 06:15 Blood Pressure 152/102 11/25/20 06:15 Blood Pressure Esmer n 118 11/25/20 06:15 Pulse Oximetry 100 11/25/20 06:15 Oxygen Delivery Me thod 11/25/20 06:15 Exam: Pre-Anes Outpt Exam: alert, oriented x 3, clear to auscultation bilaterally and regular rate & rhythm Other Pertinent Information: Other Pertinent Information: carvedilol this morning Cardiac Studies: Echocardiogram 09/23/20
--- NOTE | 2020-11-25 06:45 | PM.HP ---
Providers/Chief Complaint Admitting Physician: Mariama Primary Care Provider: Amy Chief Complaint: defibrillator placement History of Present Illness Hakan Black is a 55 year old male presents today for planned AICD implantation. He has known cardiomyopathy which has had only very modest improvement with maximal medical management under the direction of Dr. Verma. Last echocardiogram of September 23 revealed left ventricular ejection fraction at 20% with severe global left ventricular hypokinesia. This was without substantial change as compared to prior study of 11/29/2018. Mr. Black had initially refused AICD but now is in agreement. Review of Systems Const: Denies: fever(s), chills, change in appetite, change in weight, fatigue or night sweats Eyes: Denies: change in vision or blurry vision ENMT: Denies: odynophagia or hoarseness Card: Reports: swelling of feet/ankles, lightheadedness and dyspnea on exertion; Denies: chest pain, palpitations, irregular heart rhythm or edema Resp: Denies: dyspnea or productive cough GI: Reports: heartburn; Denies: abdominal pain, nausea, vomiting, dysphagia or change in bowel habits : Denies: difficulty urinating, dysuria, urinary frequency, urinary urgency or urinary hesitancy Musc: Denies: extremity pain or extremity swelling Skin/Breast: Denies: rash Neuro: Reports: dizziness; Denies: headache(s), numbness in extremities, weakness in extremities or sensory changes Psych: Denies: anxiety, depression or change in appetite Endo: Denies: polyuria, polydipsia or cold intolerance Yevgeniy/Lymph: Denies: easy bruising, easy bleeding, petechiae or enlarged lymph nodes Medications/Allergies Home Medications Medication Instructions Recorded Confirmed Last Taken Type aspirin 81 mg PO QAM 06/20/20 11/25/20 11/19/20 History carvedilol 25 mg PO BID #60 tab 06/20/20 11/25/20 11/25/20 Rx omeprazole 40 mg PO DAILY #30 cap 06/20/20 11/25/20 11/24/20 Rx sacubitril-valsartan [Entresto] 1 tab PO BID #60 tab 06/20/20 11/25/20 11/23/20 Rx magnesium oxide 400 mg PO DAILY #90 tab 08/07/20 11/25/20 11/23/20 Rx furosemide [Lasix] 40 mg PO QAM 10/23/20 11/25/20 Unknown History spironolactone 50 mg PO QAM 10/23/20 11/25/20 11/23/20 History Allergies Allergy/AdvReac Type Severity Reaction Status Date / Time No Known Allergies Allergy Verified 11/20/20 10:10 PFSH Acute PFSH: Medical History Cardiomyopathy GERD (gastroesophageal reflux disease) HTN (hypertension) Pulmonary thromboembolism Surgical History History of back surgery (~1997) Family History Other Diabetes Hypertension Social History Alcohol intake: current Alcohol intake frequency: other Vitals/I&O/Wt Last Vital Signs Temp 97.6 F 11/25/20 06:15 Pulse 90 11/25/20 06:15 Resp 18 11/25/20 06:15 BP 152/102 11/25/20 06:15 Pulse Ox 100 11/25/20 06:15 Physical Exam Const: COMMON NORMALS: patient oriented x3 and alert ORIENTATION/CONSCIOUSNESS: Yes oriented to person, Yes oriented to place and Yes oriented to time HENMT: COMMON NORMALS: normocephalic HEAD & SCALP: normocephalic and cranial bruits Neck/C-Spine: COMMON NORMALS: full ROM, supple, no JVD and No carotid bruits GENERAL: Yes trachea midline CERVICAL SPINE: Yes cervical ROM normal Chest: COMMONS NORMALS: normal inspection of the chest and normal palpation of entire chest wall Resp: COMMON NORMALS: normal respiratory effort, No use of accessory muscles, clear to auscultation bilaterally and percussion normal EFFORT & INSPECTION: Yes able to speak in complete sentences and Yes symmetric chest movement AUSCULTATION: clear to auscultation bilaterally PERCUSSION: percussion normal Cardio: COMMON NORMALS: no JVD, regular rate, regular rhythm, S1 normal heart sound present, S2 normal heart sound present, No gallops present (Cardio), No murmurs present (Cardio), No rub (Cardio) and Peripheral pulses 2+ throughout JUGULAR VENOUS DISTENTION: no JVD RATE: regular rate RHYTHM: regular rhythm HEART SOUNDS: S1 normal heart sound present and S2 normal heart sound present PERIPHERAL PULSES: Peripheral pulses 2+ throughout Extremity: COMMON NORMALS: negative for no pedal edema GENERAL: Yes edema Neuro: COMMON NORMALS: patient oriented x3, no focal motor deficits and no sensory deficits noted SENSORIUM/ORIENTATION: Yes alert, Yes oriented to person, Yes oriented to place and Yes oriented to time GAIT: Yes Normal gait present Data : 11/20/20 10:25 11/20/20 10:25 A&P Assessment and plan (1) Cardiomyopathy: Medically refractory cardiomyopathy with ejection fraction at 20%. AICD has been recommended. Rationale was carefully and frankly discussed. All questions answered. Details and risks of the procedure were carefully and frankly discussed. Risks reviewed include the possibility of , stroke, heart attack, major bleeding, infection, pneumonia, pneumothorax requiring chest tube, organ failure, failure to benefit, inability to place the leads or dislodgment of the leads requiring revision, prolonged hospital stay, pain after the procedure, need for further procedures, inability to complete the procedure, and possible need for long-term followup. All questions were answered. Appropriate consents have been provided for review and signature. 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
[2020-11-25] MEDS: lidocaine 1% INJ 20 mL SUBCUT (07:23)
[2020-11-25] MEDS: ceFAZolin 1,000 mg SDV 1000 MG IRRIGATION (07:30)
--- NOTE | 2020-11-25 07:33 | PC.NURSE ---
Called to update the that procedure had started and pt was doing well.
[2020-11-25] MEDS: lidocaine 1% INJ 50 mL 20 ML INJECTION (07:42)
--- NOTE | 2020-11-25 08:04 | PC.NURSE ---
Called to notify that Dr. Leslie was closing and that the patient was tolerating everything well.
--- NOTE | 2020-11-25 08:38 | XRR_ITS ---
PROCEDURE INFORMATION: Exam: XR Chest Exam date and time: 11/25/2020 8:38 AM Age: 55 years old Clinical indication: Device placement; Cardiac defibrillator placementor adjustment; Prior surgery; Surgery date: Post-operative (0-2 days); Surgery type: Post defibrillator placement TECHNIQUE: Imaging protocol: XR of the chest. Views: 1 view. COMPARISON: CR XR chest 1V portable [id number] 11/25/2020 6:15 AM FINDINGS: Tubes, catheters and devices: Left subclavian approach defibrillator is in satisfactory position. Lungs: Unremarkable. No consolidation. Pleural spaces: Unremarkable. No pleural effusion. No pneumothorax. Heart/Mediastinum: Stable cardiomediastinal silhouette. Bones/joints: Degenerative changes of the spine seen. XR/XR chest 1V portable [id number] IMPRESSION: No evidence of active cardiopulmonary disease.
--- NOTE | 2020-11-25 08:38 | P.OP_ITS ---
Operative Report Date of procedure: November 25, 2020 Pre-op Diagnosis: Medically refractory cardiomyopathy Post-op diagnosis: same Procedure Done: Automatic implantable cardiac defibrillator placement Implants: AICD generator and ventricular lead Pathology: none sent Surgeon: Kyle Leslie Anesthesia: MAC and Local Complications: None: Post procedure chest x-ray pending Condition: stable Disposition: floor Brief History: Mr. Black is a 55-year-old gentleman with medically refractory cardiomyopathy who has been cared for by Dr. Verma. Despite maximization medically, his ejection fraction remains at 20%. He initially declined AICD implantation but now has agreed. Details of risk the procedure were carefully and frankly discussed with him and his . Proper consents have been reviewed and signed. Procedure: Procedure: Mr. Black was taken to the OR suite and placed in the supine position over a shoulder roll. He received conscious sedation with continuous anesthesia monitoring by. He is entire chest was sterilely prepped and draped. 1% lidocaine was infiltrated in the left subclavicular region. While in Trendelenburg position, utilizing modified seldinger technique, and subsequent hand-held ultrasound guidance, a guidewire was placed in the left subclavian vein. This was confirmed in position by fluoroscopy. Next, after infiltration with lidocaine, a subcutaneous pocket was created beginning from the exit point of the guidewire and extending laterally and inferiorly. Cautery was utilized to create the pocket just above the pectoralis musculature. Hemostasis was confirmed. An antibiotic-soaked sponge was placed in the wound. A dilator and tear-away sheath was placed over the guidewire and advanced under fluoroscopy. Guidewire and dilator were removed. Next using a combination of curved and straight stylettes, the right ventricular lead was placed in position by fluoroscopy. The distal screw was extended. Interrogation was then performed confirming appropriate parameters. The tear-away sheath was then removed and the ventricular lead was sewn to the floor of the subcutaneous pocket. Generator was brought into the field, and after confirmation of hemostasis in the subcutaneous pocket, the lead was connected to the generator with appropriate capture. The entire system was interrogated by fluoroscopy. Lead and generator were secured in the pocket. Sponge and needle count was correct. The wound was then closed in 2 layers of 3-0 Vicryl suture. Skin was reapproximated in a subcuticular manner with 4-0 Monocryl suture. A pressure dressing was applied. The left arm was placed in a sling. Mr. Black had equal breath sounds bilaterally. He was then transferred to the PACU, where chest x- ray is currently pending. I did assistant corporation counsel with his at the completion of the procedure. Following are the specifics of this system: Right ventricular lead is 62 cm and model 6935M. Serial number [id number] Ventricular lead had sensing of 15.4 mV with an impedance of 645 ohms. Threshold was 0.5 V Electric [employer] generator: Model # [id number] Serial # [id number]
--- NOTE | 2020-11-25 09:05 | SUR.PHASEI ---
0847 PT AWAKE ALERT DENIES PAIN AND NAUSEA, PT UP IN BED AT 30 DEGREES X RAY DONE, DR CHARLES AT BEDSIDE PT NOW BEING HELD WAITING FOR A BED ORDERS RECIEVED FOR CARDIAC DIET, ORDERS PER DR CHARLES , CAFETERIA CALLED PT TO OPS ROOM 1 FOR HOLDING AT BEDSIDE, CONTINOUS ECG AND SATS MONITORED PT IN SR NO ECTOPY.
[2020-11-25] MEDS: HYDROcodone-acetaminophen 5-325 mg Tablet 1 TAB PO (09:26)
--- NOTE | 2020-11-25 09:29 | SUR.PHASEI ---
8994 PT ATE SOME OF HIS BREAKFAST DRANK SOME APPLE JUICE , NOW C/O OF (ACHING PAIN ) TO LT CHEST SHOULDER AREA SEE PAIN MED GIVEN. AT BEDSIDE VSS MONITOR UNCHANGED DRESSING D/I
--- NOTE | 2020-11-25 10:13 | SUR.PHASEI ---
PT CARE ASSUMED BY BRENDA NAVAS RN IN OPS, PT SLEEPING QUIETLY WITH IN ROOM , PT IS STILL IN HOLDING WAITING FOR A FLOOR BED.
[2020-11-25] MEDS: sacubitril/valsartan 24-26 mg Tablet 1 EACH PO ×2 (13:49→17:36)
[2020-11-25] MEDS: pantoprazole DR 40 mg Tablet PO (13:49)
[2020-11-25] MEDS: carvedilol 25 mg Tablet PO ×2 (13:49→17:36)
[2020-11-25] MEDS: lactated ringers 1,000 ML 30 ML IV (13:54)
--- NOTE | 2020-11-25 15:12 | ANE.PACU2 ---
Inpatient post-anesthesia follow up: Airway intact: Yes Vital signs: Temperature 97.9 F Pulse Rate 62 Respiratory Rate 6 Blood Pressure 128/90 Pulse Oximetry 98 Oxygen Delivery Me thod [ Room Air Current Rate & Del dustin] Oxygen Delivery Me thod Room Air Oxygen Flow Rate Fraction of Inspir ed Oxygen Hydration adequate: Yes Nausea and vomiting: No Pain level: 2 Mental status: Baseline
[2020-11-25] MEDS: ceFAZolin 1,000 MG in sodium chloride 0.9% (plus) 50 ML 100 MG IV ×2 (15:28→22:10)
[2020-11-25] MEDS: diphenhydrAMINE 25 mg Capsule PO (23:55)
[2020-11-26] VITALS: BP 133/86; PULSE 70; RESP 17; TEMP 36.6; O2SAT 95
[2020-11-26 04:00] VITALS: BP 146/88; PULSE 69; RESP 16; TEMP 36.8; O2SAT 96
[2020-11-26] MEDS: FUROsemide 40 mg Tablet PO (05:10)
[2020-11-26] MEDS: spironolactone 25 mg Tablet 50 MG PO (05:11)
[2020-11-26] MEDS: aspirin 81 mg EC Tablet PO (05:11)
--- NOTE | 2020-11-26 05:45 | PM.PN ---
Subjective Subjective: Interval history: POD #1 status post AICD implantation. Uneventful night. Modest postsurgical discomfort. Outer pressure dressing was removed. Inner dressing is clean and dry. No substantial swelling noted. Post procedure chest x-ray reveals good lead placement and no evidence for pneumothorax. Vitals/I&O/Wt Last Vital Signs Temp 98.2 F 11/26/20 04:00 Pulse 69 11/26/20 04:00 Resp 16 11/26/20 04:00 BP 146/88 11/26/20 04:00 Pulse Ox 96 11/26/20 04:00 11/25/20 11/25/20 11/26/20 14:59 22:59 06:59 Intake Total 90 / 90 340 / 430 200 / 630 Output Total 202 / 202 525 / 727 1300 / 7 Balance -112 / -112 -185 / -297 -1100 / -1397 Weight last 48 hrs Weight 200 lb Physical Exam Chest: OTHER: Surgical dressing clean and dry. No ecchymosis. Minimal tenderness. Resp: COMMON NORMALS: normal respiratory effort and No use of accessory muscles EFFORT & INSPECTION: Yes able to speak in complete sentences and Yes symmetric chest movement Cardio: COMMON NORMALS: regular rate, regular rhythm, S1 normal heart sound present and No murmurs present (Cardio) RATE: regular rate RHYTHM: regular rhythm HEART SOUNDS: S1 normal heart sound present Data : 11/20/20 10:25 11/20/20 10:25 A&P Assessment and plan (1) AICD (automatic cardioverter/defibrillator) present: Update #1 status post AICD implantation. Will perform interrogation this morning and plan for discharge to home. Follow-up in pacemaker clinic in 1 week. Discharge instructions reviewed. Status: Acute Attestations Medical Necessity Statement*: Status post AICD implantation secondary to cardiomyopathy which has been medically refractory. Time Spent in Patient Care: less than 15 minutes Coding Level of Care Code Acute Mental Health Social Worker for Chg Fwd Diagnoses AICD (automatic cardioverter/defibrillator) present Z95.810
[2020-11-26 05:47] VITALS: PULSE 86
--- NOTE | 2020-11-26 05:52 | P.DS_ITS ---
Discharge Providers Date of Admission: 11/25/20 10:50 Date of Discharge: November 26, 2020 Attending Provider at Admission: Kyle Leslie MD Attending Provider at Discharge: Kyle Leslie MD Diagnoses at Discharge Discharge Diagnosis (1) AICD (automatic cardioverter/defibrillator) present: Status: Acute Reason for Visit Reason for Visit: defibrillator placement Hospital Course Hospital Course Mr. Black is a 55-year-old gentleman with medically refractory cardiomyopathy who is been followed carefully by Dr. Verma through our heart care services. Ejection fraction remains at 20% on most recent echocardiogram of September 23. He initially had refused AICD implantation but now request to proceed. Details the risk of the procedure were carefully discussed. Appropriate consents were reviewed and signed. He was electively admitted on November 25 and underwent single lead AICD implantation. Postoperatively, he convalesced as outpatient in a bed where he received postoperative antibiotics and careful monitoring. Outer pressure dressing was removed from his surgical site morning following surgery. There is no ecchymosis or substantial swelling. Postoperative discomfort is under good control. Postop interrogation of the device was performed the morning after surgery. He will be discharged home today in a stable condition with limited activities with the left arm for 2 weeks. He will be scheduled follow-up in [facility] in 1 week. Physical Exam Chest: COMMONS NORMALS: normal inspection of the chest OTHER: Inner surgical dressing is clean and dry. No ecchymosis. No swelling. Minimal discomfort. Resp: COMMON NORMALS: normal respiratory effort, No retractions, No use of accessory muscles, clear to auscultation bilaterally and percussion normal EFFORT & INSPECTION: Yes able to speak in complete sentences and Yes symmetric chest movement AUSCULTATION: clear to auscultation bilaterally PERCUSSION: percussion normal Cardio: COMMON NORMALS: regular rate, regular rhythm, S1 normal heart sound present, No murmurs present (Cardio) and No rub (Cardio) RATE: regular rate RHYTHM: regular rhythm HEART SOUNDS: S1 normal heart sound present Extremity: COMMON NORMALS: no clubbing, cyanosis or edema Discharge Data Data Completed and Pending: Completed Studies During Hospitalization Category Date Time Status CXRP [XR chest 1V portable [id number]] R outine Exams 11/25/20 08:38 Completed XR chest 1V shawna ble [id number] Routine Exams 11/25/20 05:46 Completed Vitals: Last Vital Signs Temp 98.2 F 11/26/20 04:00 Pulse 86 11/26/20 05:47 Resp 16 11/26/20 04:00 BP 146/88 11/26/20 04:00 Pulse Ox 96 11/26/20 04:00 Discharge Plan Discharge Condition: Stable Prescriptions: New hydrocodone-acetaminophen 5-325 mg Tablet 1 tab PO Q6H PRN (Reason: Moderate Pain) Qty: 15 RF: 0 Continued magnesium oxide 400 mg magnesium tablet 400 mg PO DAILY Qty: 90 RF: 1 furosemide [Lasix] 40 mg tablet 40 mg PO QAM RF: 0 spironolactone 50 mg tablet 50 mg PO QAM RF: 0 aspirin 81 mg Tablet,Delayed Release (Dr/Ec) 81 mg PO QAM RF: 0 carvedilol 25 mg tablet 25 mg PO BID Qty: 60 RF: 0 Entresto 24-26 mg tablet 1 tab PO BID Qty: 60 RF: 0 omeprazole 40 mg capsule,delayed release(DR/EC) 40 mg PO DAILY Qty: 30 RF: 0 Discharge Orders: Discharge Order (Routine); Ordered 11/26/20 Ordered By: Kyle Leslie Referrals: [facility] [Provider Group] - 1 week (Pacemaker Clinic) Discharge Diet: Usual diet Discharge Activity: Limit activity as instructed Patient Instructions: Opioid Safety Activity Restrictions/Additional Instructions: May remove bandage in 2 days May begin daily showers in 2 days No swimming or tub baths x 2 weeks No ointments on incision Report drainage, redness, heat, increased pain, or swelling to clinic Do not lift left arm above eye level for 1 week No heavy pulling or heavy lifting with left arm x2 weeks Discharge Attestations Time Spent in Discharge Care*: less than 30 min Specific Discharge Activities: educating patient, discussing with trimming caser/social workers/dc planners, documenting/other paperwork and evaluating patient/reviewing data Time Spent in Smoking Cessation: 3 to 10 minutes Status at Discharge: Cognitive status at discharge: cognitively intact , Quality Metrics Clinical Quality Measures During this hospital stay, did patient experience: None Coding Level of Care Code Acute Chg FW DC note Diagnoses AICD (automatic cardioverter/defibrillator) present Z95.810
--- NOTE | 2020-11-26 06:30 | PC.NURSE ---
Addendum entered by Teresa Cohn LPN 11/26/20 06:37: Meant to chart automatic cardiovertor/defibrillator not pacemaker Original Note: SHIFT SUMMARY Had trouble sleeping tonight. Was given po Benadryl but still not much sleep. No request for pain meds. IV infusing at 30ml/hr rate. Voiding well per urinal. Says left upper chest/shoulder is really sore when he moves and tender to touch. Dressing to left upper chest is C&D. Sling to left arm. Dr Leslie in this am and has orders in for discharge today. Interrogation of pacemaker/defibillator done this am with report placed on chart.
[2020-11-26] MEDS: ceFAZolin 1,000 MG in sodium chloride 0.9% (plus) 50 ML 100 MG IV (06:36)
[2020-11-26 07:40] VITALS: BP 137/90; PULSE 70; RESP 18; TEMP 36.3; O2SAT 97
--- NOTE | 2020-11-26 08:25 | PC.CHAP ---
Pastoral Care Encounter/Spiritual Assessment Type of Contact [] Declined live in companion visit [] Patient/Family/Request visit [] Outpatient visit [] Follow-up visit [] Physician referral [] Code/Alert [x] Routine visit [] Staff referral [] Actively dying [] Patient sleeping [] Family support [] [] Out of room [] Palliative care [] [] Receiving care in room [] Pre-surgical visit [] Trauma [] Long length of stay [] ICU visit [] Other: Relational/Emotional Strength [] Patient feels connected with others/family/visitors/staff [] Distress [] Loneliness/isolation [] Abandonment Spirituality of Patient [] Person of [place] [] Attends Congregation of their [place] [] Believes in Prayer [] Reads Bible or Mandaen materials [] There are Spiritual issues to be addressed Agriscience Teacher Interventions [x] Prayer [] Active listening [] Non-anxious presence [] Spiritual/emotional support [] Crisis/trauma care [] Spiritual counseling [] Bereavement support [] Provided bereavement packet [] Provided Bible/devotional materials [] Provided toy/stuffed animal, coloring book to patient or family member [] Provided Communion [] Anointing/[place] [] Salvation [x] Completed spiritual assessment [] Other: Impact on Illness or Injury [] Angry [] Fearful [] Anxious [] Often cries [] Exhaustion [] Unable to work [] Unable to attend rastafari [] Unable to walk/stand [] Unable to read [] Unable to drive [] Unable to eat/drink [] Unable to sleep [] Unable to be with family [] Patient intubated [] Other: Summary Time spent with patient 10 min
[2020-11-26] MEDS: sacubitril/valsartan 24-26 mg Tablet 1 EACH PO (08:58)
[2020-11-26] MEDS: carvedilol 25 mg Tablet PO (08:58)
[2020-11-26] MEDS: pantoprazole DR 40 mg Tablet PO (08:59)
[2020-11-26] MEDS: magnesium oxide 400 mg tablet PO (08:59)
[2020-11-26 09:13] VITALS: BP 137/90; PULSE 70; RESP 18; TEMP 36.3; O2SAT 97
== END 2020-11-26 09:15 | disposition home or self-care (01) ==
LOC: OR 06:06 → MEDSURG 16:40
PROVIDERS: Visit Provider Thoracic Surgery (Cardiothoracic Vascular Surgery)
PROC: 0JH608Z Insertion of Defibrillator Generator into Chest Subcutaneous Tissue and Fascia, Open Approach (ICD-10-PCS; CPT 33249; principal; 2020-11-25 07:00)
DX: I42.9 Cardiomyopathy, unspecified (principal); Z79.82 Long term (current) use of aspirin; K21.9 Gastro-esophageal reflux disease without esophagitis; I10 Essential (primary) hypertension; Z83.3 Family history of diabetes mellitus; Z82.49 Family history of ischemic heart disease and other diseases of the circulatory system
CPT/HCPCS: 33270; 36415; 71045; 76000; 80048; 81003; 85025; 93005; C1722; C1777; G0378; J0690; J7030

== ENCOUNTER 2020-12-31 10:07 | Emergency (ER) | payer OTHER, MEDICARE, SELFPAY ==
[2020-12-31 10:22] VITALS: BP 164/108; PULSE 72; RESP 16; TEMP 36.7; O2SAT 100; BMI 26.1
[2020-12-31 10:30] VITALS: BP 147/98; PULSE 75; RESP 18; O2SAT 100
--- NOTE | 2020-12-31 10:33 | ED_ITS ---
HPI - General Adult General: Chief complaint: General Medical Stated complaint: Needs surgical incision looked at Time Seen by Provider: 12/31/20 10:21 History of Present Illness: HPI narrative: Patient is a 55-year-old male comes to the ED to check healing of surgical incision site. Back on November 25 patient had a pacemaker placed. Approximately 3 days ago he started developing some erythema, warmth, tenderness and a little bit of purulent drainage from the incision site. He contacted Dr. Leslie's office today and spoke with the nurse. The nurse told him to come here to the ED to be evaluated. He denies any fever, chills, chest pain, nausea/vomiting, bladder or bowel symptoms. Associated symptoms: Deny chest pain, dyspnea, headache(s), nausea, rash, palpitations or vomiting Review of Systems Const: Denies: fever(s), chills or fatigue Eyes: Denies: change in vision or eye discomfort ENMT: Denies: throat pain, odynophagia, nasal discharge or nasal congestion Card: Denies: chest pain, palpitations, edema, swelling of feet/ankles, dyspnea on exertion or orthopnea Resp: Denies: dyspnea, productive cough or non-productive cough GI: Denies: abdominal pain, nausea, vomiting, diarrhea, constipation or hematochezia : Denies: flank pain, difficulty urinating, dysuria or hematuria Musc: Denies: neck pain, back pain or extremity swelling Skin/Breast: Reports: surgical incision (Redness, warmth and purulent drainage at left chest incision site); Denies: rash or new lesions Neuro: Denies: headache(s), numbness in extremities or weakness in extremities [facility] ED PFSH: Medical History Cardiomyopathy GERD (gastroesophageal reflux disease) HTN (hypertension) Pulmonary thromboembolism Surgical History AICD (automatic cardioverter/defibrillator) present History of back surgery (~1997) Family History Other Diabetes Hypertension Social History Alcohol intake: current Alcohol intake frequency: other Physical Exam Const: COMMON NORMALS: no acute distress, patient oriented x3, healthy appearing and alert GENERAL APPEARANCE: cooperative and comfortable HENMT: COMMON NORMALS: normocephalic HEAD & SCALP: normocephalic MOUTH: Normal oral and palatal mucosa present THROAT: posterior oropharynx normal and uvula midline Neck/C-Spine: COMMON NORMALS: supple GENERAL: Yes normal visual inspection Chest: OTHER: Surgical Incision site on left chest wall were pacemaker was placed has some small surrounding erythema, warmth and tenderness. No purulent drainage seen on upon exam. Wound remains closed and no dehiscence. findings suggestive of some cellulitis developing around surgical site. Resp: COMMON NORMALS: normal respiratory effort, No retractions, No use of accessory muscles and clear to auscultation bilaterally AUSCULTATION: clear to auscultation bilaterally Cardio: COMMON NORMALS: regular rate, regular rhythm, S1 normal heart sound present, S2 normal heart sound present, No gallops present (Cardio), No clicks present (Cardio), No murmurs present (Cardio) and Peripheral pulses 2+ throughout RATE: regular rate RHYTHM: regular rhythm HEART SOUNDS: S1 normal heart sound present and S2 normal heart sound present PERIPHERAL PULSES: Peripheral pulses 2+ throughout GI: COMMON NORMALS: Normal to inspection, nondistended, normoactive bowel sounds present, Soft to palpation, non-tender and no masses PALPATION: Yes Soft to palpation : COMMON NORMALS: Yes no CVA tenderness BLADDER/KIDNEY EXAM: Yes no CVA tenderness Back/Pelvis: COMMON NORMALS: no CVA tenderness Extremity: COMMON NORMALS: normal to inspection Neuro: COMMON NORMALS: patient oriented x3 and moves all extremities SENSORIUM/ORIENTATION: Yes alert Skin: GENERAL SKIN EXAM: dry skin Course Vital Signs: Vital signs: Vital Signs Temperature 98.1 F 12/31/20 10:22 Pulse Rate 75 12/31/20 10:30 Respiratory Rate 18 12/31/20 10:30 Blood Pressure 147/98 12/31/20 10:30 Pulse Oximetry 100 12/31/20 10:30 MDM - General Adult MDM Narrative: Medical decision making narrative: Patient is a 55-year-old male who comes to the ED with concerns of infection of the surgical incision site. Patient had a pacemaker placed back on November 25 and within the past 3 days he has developed a little bit erythema, tenderness, warmth and purulent drainage around incision site. Denies any fever, chills, nausea/vomiting or any other symptoms. Patient is afebrile, rest of vitals are stable. Exam findings show cellulitis developing around surgical site on left chest but no visible purulent drainage seen. Surgical wound is healing and closed with no dehiscence of wound patient was given a dose of IM Rocephin while here in the ED and discharged home with a prescription for Bactrim. He was told to follow-up with his PCP or with Dr. Leslie in the next 3 to 5 days for reevaluation. Return to ED precautions given. Patient understood agree with plan. Discharge Plan Discharge Patient Disposition: Home Clinical Impression: Postoperative cellulitis of surgical wound Condition: Stable Prescriptions: New Bactrim DS 800-160 mg tablet 1 tab PO BID 7 Days Qty: 14 RF: 0 No Action magnesium oxide 400 mg magnesium tablet 400 mg PO DAILY Qty: 90 RF: 1 furosemide [Lasix] 40 mg tablet 40 mg PO QAM RF: 0 spironolactone 50 mg tablet 50 mg PO QAM RF: 0 hydrocodone-acetaminophen 5-325 mg Tablet 1 tab PO Q6H PRN (Reason: Moderate Pain) Qty: 15 RF: 0 aspirin 81 mg Tablet,Delayed Release (Dr/Ec) 81 mg PO QAM RF: 0 carvedilol 25 mg tablet 25 mg PO BID Qty: 60 RF: 0 Entresto 24-26 mg tablet 1 tab PO BID Qty: 60 RF: 0 omeprazole 40 mg capsule,delayed release(DR/EC) 40 mg PO DAILY Qty: 30 RF: 0 Discharge Orders: Discharge ED (Routine); Ordered 12/31/20 Ordered By: Jim Lees Discharge Diet: Regular Discharge Activity: Resume usual activity Patient Instructions: Cellulitis (ED) Activity Restrictions/Additional Instructions: Follow-up with medical provider as directed in 3 to 5 days to reevaluate outs. take medications as prescribed. Return to the ER or your medical provider if condition worsens. Please read and understand discharge instructions. Thank you for choosing [facility] for your healthcare needs today. Please realize this is an emergency room and that we are providing you with a medical screening exam and this may not be complete and all inclusive of all the testing and or work up that you may need to determine your ailment or severity of your illness. It is very important that you follow up as instructed or that you return to the Emergency Department should you have concerns or if your condition changes or worsens in any way. Coding Level of Care Code ED Torpedo Specialist for Jasmina Greco Exam Comprehensive
[2020-12-31] MEDS: cefTRIAXone 1,000 MG in lidocaine 1% 2.1 ML 1 MG IM (10:55)
[2020-12-31 11:42] VITALS: BP 147/97; PULSE 74; RESP 16; O2SAT 100
== END 2020-12-31 11:44 | disposition home or self-care (01) ==
PROVIDERS: Emergency Provider Physician Assistant
DX: T81.49XA Infection following a procedure, other surgical site, initial encounter (principal); L03.313 Cellulitis of chest wall; I10 Essential (primary) hypertension; Z86.711 Personal history of pulmonary embolism
CPT/HCPCS: 96372; 99283; J0696

== ENCOUNTER → 2021-10-29 13:58 | Outpatient (BNVA) | payer OTHER, SELFPAY | PROVIDERS: Visit Provider Nurse Practitioner Family | DX: I10 Essential (primary) hypertension (principal); Z95.810 Presence of automatic (implantable) cardiac defibrillator; I42.9 Cardiomyopathy, unspecified | CPT/HCPCS: 99214 ==

== ENCOUNTER → 2021-11-28 09:46 | Outpatient (BNVA) | payer OTHER, SELFPAY | PROVIDERS: Visit Provider Internal Medicine Cardiovascular Disease | DX: Z45.02 Encounter for adjustment and management of automatic implantable cardiac defibrillator (principal) | CPT/HCPCS: 93282 ==

== ENCOUNTER 2022-03-02 11:21 | Outpatient (CLI) | payer OTHER, SELFPAY ==
--- NOTE | 2022-03-02 11:29 | US_ITS ---
WS: [id number] RENAL ULTRASOUND HISTORY: CHRONIC KIDNEY DZ-STAGE 3B COMPARISON: None available. TECHNIQUE: 2-D and color Doppler imaging of the kidney submitted. Right kidney: 11.7 cm x 6.2 cm x 5.3 cm. Normal echogenicity with no hydronephrosis or mass. Echogenicity is slightly increased but probably m ore technical than related to renal disease. No cortical atrophy or thinning. Left kidney: 10.0 cm x 4.2 cm x 4.0 cm. Poorly visualized kidney due to body habitus. No abnormality is identified. No hydronephrosis. Renal mass would be difficult to exclude. Aorta: Normal. Urinary Bladder: Minimally distended urinary bladder. Prostate gland is mildly heterogeneous. Bilater al ureteral jets. US/US renal BI* [id number] IMPRESSION: 1. Technically limited evaluation of the renal parenchyma due to body habitus. 2. No obstruction or cortical thinning identified.
== END 2022-03-02 11:22 | disposition home or self-care (01) ==
PROVIDERS: Visit Provider Internal Medicine Nephrology
DX: N18.32 Chronic kidney disease, stage 3b (principal)
CPT/HCPCS: 76770

== ENCOUNTER → 2022-03-13 09:01 | Outpatient (BNVA) | payer OTHER, SELFPAY | PROVIDERS: Visit Provider Internal Medicine Cardiovascular Disease | DX: Z45.02 Encounter for adjustment and management of automatic implantable cardiac defibrillator (principal) | CPT/HCPCS: 93282 ==

== ENCOUNTER → 2022-05-19 14:49 | Outpatient (BNVA) | payer OTHER, SELFPAY | PROVIDERS: Visit Provider Internal Medicine Cardiovascular Disease | DX: I42.0 Dilated cardiomyopathy (principal); Z95.810 Presence of automatic (implantable) cardiac defibrillator; I10 Essential (primary) hypertension; K21.9 Gastro-esophageal reflux disease without esophagitis; F17.200 Nicotine dependence, unspecified, uncomplicated | CPT/HCPCS: 36415; 80053; 80061; 83721; 85025; 99214; Q3014 ==

== ENCOUNTER 2022-12-06 00:57 | Emergency (ER) | payer OTHER, SELFPAY ==
[2022-12-06] VITALS (7 sets, daily range): BP systolic 140–164; BP diastolic 98–107; PULSE 77–108; RESP 14–23; TEMP 36.9; O2SAT 98–99
--- NOTE | 2022-12-06 01:01 | CTR_ITS ---
PROCEDURE INFORMATION: Exam: CTA Head With Contrast, Arteriography Exam date and time: 12/06/2022 1:05 AM Age: 57 years old Clinical indication: Stroke-like symptoms; Speech disturbance; Additional info: Stroke symptoms TECHNIQUE: Imaging protocol: Computed tomographic angiography of the head with contrast. Exam focused on the arteries. 3D rendering (Not supervised by radiologist): MIP and/or 3D reconstructed images were created by the technologist. Radiation optimization: All CT scans at this facility use at least one of these dose optimization techniques: automated exposure control; mA and/or kV adjustment per patient size (includes targeted exams where dose is matched to clinical indication); or iterative reconstruction. Contrast material: OMNI 350; Contrast volume: 100 ml; Contrast route: INTRAVENOUS (IV); REPORTING DATA: Count of CT and Cardiac NM exams in prior 12 months: This patient has received 0 known CTs and 0 known cardiac nuclear medicine studies in the 12 months prior to the current study. COMPARISON: CT head wo con* [id number] 12/06/2022 12:59 AM RADIATION DOSE METRICS: Total DLP (mGy-cm): 574.02 FINDINGS: ANTERIOR CIRCULATION: Right internal carotid artery: Intracranial segment is patent with no significant stenosis. No aneurysm. Right middle cerebral artery: No occlusion or significant stenosis. No aneurysm. Right anterior cerebral artery: Hypoplastic right A1 segment with a patent anterior communicating artery, anatomic variant. No aneurysm. Left internal carotid artery: Intracranial segment is patent with no significant stenosis. No aneurysm. Left middle cerebral artery: No occlusion or significant stenosis. No aneurysm. Left anterior cerebral artery: No occlusion or significant stenosis. No aneurysm. POSTERIOR CIRCULATION: Right vertebral artery: No occlusion or significant stenosis. No aneurysm. Left vertebral artery: No occlusion or significant stenosis. No aneurysm. Basilar artery: No occlusion or significant stenosis. No aneurysm. Right posterior cerebral artery: No occlusion or significant stenosis. No aneurysm. Left posterior cerebral artery: No occlusion or significant stenosis. No aneurysm. Brain: No definite mass, mass effect, or midline shift. Cerebral ventricles: No ventriculomegaly. Dental: Multiple bilateral maxillary and mandibular tooth abscesses. Multiple tooth carries. Bones/joints: No acute fracture. Multilevel degenerative disc disease without significant spinal canal stenosis. Soft tissues: Unremarkable. PROCEDURE INFORMATION: Exam: CTA Neck With Contrast Exam date and time: 12/06/2022 1:05 AM Age: 57 years old Clinical indication: Stroke-like symptoms; Speech disturbance; Additional info: Stroke symptoms TECHNIQUE: Imaging protocol: Computed tomographic angiography of the neck with contrast. 3D rendering (Not supervised by radiologist): MIP and/or 3D reconstructed images were created by the technologist. Radiation optimization: All CT scans at this facility use at least one of these dose optimization techniques: automated exposure control; mA and/or kV adjustment per patient size (includes targeted exams where dose is matched to clinical indication); or iterative reconstruction. Contrast material: OMNI 350; Contrast volume: 100 ml; Contrast route: INTRAVENOUS (IV); REPORTING DATA: Count of CT and Cardiac NM exams in prior 12 months: This patient has received 0 known CTs and 0 known cardiac nuclear medicine studies in the 12 months prior to the current study. COMPARISON: CT angio chest PE protcl [id number] 06/20/2020 1:10 PM RADIATION DOSE METRICS: Total DLP (mGy-cm): 574.02 FINDINGS: Limitations: Streak and motion artifacts limit evaluation. Right common carotid artery: No significant stenosis. No dissection or occlusion. Right internal carotid artery: Atheromatous calcification of the extracranial segment with no significant stenosis. No dissection or occlusion. Right external carotid artery: No occlusion or significant stenosis of the origin. Left common carotid artery: No significant stenosis. No dissection or occlusion. Left internal carotid artery: No significant stenosis of the extracranial segment. No dissection or occlusion. Left external carotid artery: No occlusion or significant stenosis of the origin. Right vertebral artery: No significant stenosis. No dissection or occlusion. Left vertebral artery: Dominant left vertebral artery with mild proximal stenosis and mild distal stenosis at the foramen magnum. No dissection or occlusion. Soft tissues: No significant soft tissue swelling. Bones/joints: No acute fracture. Other findings: No dissection or occlusion. CT/CT angio headneck* [id number] IMPRESSION: 1. No large vessel stenosis or occlusion. 2. Multiple bilateral maxillary and mandibular tooth abscesses. IMPRESSION: 1. Atherosclerotic disease of the right extracranial internal carotid artery with no stenosis by NASCET criteria. 2. Normal left extracranial internal carotid artery. 3. Dominant left vertebral artery with mild proximal and distal stenoses. 4. Widely patent non dominant right vertebral artery. REFERENCES: NASCET CRITERIA. The degree of stenosis in the cervical segment of the internal carotid artery is based on NASCET criteria. Normal is no stenosis. Mild is less than 50% stenosis. Moderate is 50-69% stenosis. Severe is 70% to 99% stenosis. Total occlusion is no detectable patent lumen.
--- NOTE | 2022-12-06 01:01 | CTR_ITS ---
PROCEDURE INFORMATION: Exam: CT Head Without Contrast Exam date and time: 12/06/2022 12:59 AM Age: 57 years old Clinical indication: Stroke-like symptoms; Speech disturbance; Additional info: Sudden onset of aphasia. Unknown last known well time. TECHNIQUE: Imaging protocol: Computed tomography of the head without contrast. Radiation optimization: All CT scans at this facility use at least one of these dose optimization techniques: automated exposure control; mA and/or kV adjustment per patient size (includes targeted exams where dose is matched to clinical indication); or iterative reconstruction. Other technique: STROKE PROTOCOL was implemented. REPORTING DATA: Count of CT and Cardiac NM exams in prior 12 months: This patient has received 0 known CTs and 0 known cardiac nuclear medicine studies in the 12 months prior to the current study. COMPARISON: No relevant prior studies available. RADIATION DOSE METRICS: Total DLP (mGy-cm): 1014.08 FINDINGS: Brain: There is no evidence of intracranial hemorrhage. No mass effect or midline shift. Unremarkable white matter. No territorial edema. Bilateral basal ganglia prominent perivascular spaces. Cerebral ventricles: The ventricles and sulci are appropriate for the patient's age. Paranasal sinuses: There are no air-fluid levels. Mastoid air cells: The visualized mastoid air cells are well aerated. Bones/joints: No acute fracture. Soft tissues: Unremarkable. CT/CT head wo con* [id number] IMPRESSION: No acute findings. ASSESSMENT: ASPECTS (Rebekah Stroke Program Early CT Score) is 10.
--- NOTE | 2022-12-06 01:02 | ECG_ITS ---
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 Measurements Intervals [place] Rate: 77 P: 75 NC: 160 QRS: 51 QRSD: 105 T: 168 QT: 407 QTc: 462 Interpretive Statements SINUS RHYTHM POSSIBLE LEFT ATRIAL ENLARGEMENT [-0.1mV P-WAVE IN V1/V2] LEFT VENTRICULAR HYPERTROPHY AND ST-T CHANGE [VOLTAGE CRITERIA PLUS ST/T ABNORMALITY] Compared to ECG 11/20/2020 10:33:18 No significant changes Electronically Signed On 12-06-2022 15:16:16 CDT by Miguel Colin M.D. [email or web address]
--- NOTE | 2022-12-06 01:02 | XRR_ITS ---
PROCEDURE INFORMATION: Exam: XR Chest Exam date and time: 12/06/2022 1:22 AM Age: 57 years old Clinical indication: Prior surgery; Surgery date: 6+ months; Surgery type: Pacer; Patient HX: Stroke alert. Sudden onset of aphasia. Unknown last known well time. ; Additional info: AMS TECHNIQUE: Imaging protocol: Radiologic exam of the chest. Views: 1 view. COMPARISON: CR XR chest 1V portable [id number] 11/25/2020 8:33 AM FINDINGS: Tubes, catheters and devices: A left pacemaker device is present and its single lead is in appropriate position. Lungs: No consolidation. Pleural spaces: No pleural effusion or pneumothorax. Heart/Mediastinum: The heart and mediastinum are normal in size. Bones/joints: Degenerative changes of the spine. XR/XR chest 1V portable [id number] IMPRESSION: No acute findings.
[2022-12-06] MEDS: iohexol 350 mg/mL 500 mL Btl (per mL) IV (01:12)
--- NOTE | 2022-12-06 01:23 | ED_ITS ---
HPI - Neuro Symptoms/Deficit General: Chief Complaint: Neuro Symptoms/Deficit Stated Complaint: STROKE Time Seen by Provider: 12/06/22 00:59 Source: patient History of Present Illness: 57 year old smoker who was sitting on his porch this evening. Around 11:15, his right arm began to feel quite heavy. He noticed that he could not speak appropriately. It took him some time to make a call to his family, as he was home alone. They received a call from him around 11:30, with garbled speech. On arrival, the patient's arm weakness has resolved. His speech, however, remains troublesome. He says that he is much improved from onset of symptoms, but is still having trouble finding the appropriate words. His speech is also slurred. No significant vision change now, although he notes that his vision may have been blurry before. No lower extremity symptoms. No ataxia. He does not have a headache. Timing confirmed by: spouse On Anticoagulants: No Associated symptoms: Deny chest pain, headache(s), nausea or vomiting Review of Systems Const: Denies: fever(s) Eyes: Reports: change in vision ENMT: Denies: throat pain Card: Denies: chest pain or palpitations Resp: Denies: dyspnea, productive cough or non-productive cough GI: Denies: abdominal pain, nausea or vomiting Musc: Denies: neck pain Skin/Breast: Denies: rash Neuro: Reports: weakness in extremities, Slurred speech present and difficulty communicating thoughts; Denies: headache(s), difficulty walking, dizziness or confusion [facility] [place] ED PFSH: Medical History Cardiomyopathy GERD (gastroesophageal reflux disease) HTN (hypertension) ICD (implantable cardioverter-defibrillator), single, in situ Pulmonary thromboembolism Surgical History AICD (automatic cardioverter/defibrillator) present History of back surgery (~1997) Family History Other Diabetes Hypertension Social History Smoking and tobacco status: current every day smoker Alcohol intake: current Alcohol intake frequency: other NIH stroke score NIHSS: Level Of Consciousness - 1a: 0 Level Of Consciousness Questions - 1b: Both Correct Level Of Consciousness Commands - 1c: Both Correct Best Gaze - 2: Normal Visual Rogers - 3: No Visual Loss Facial Palsy - 4: Nor mal Motor Arm Right - 5: No Drift Motor Arm Left - 5: No Drift Motor Leg Right - 6: No Drift Motor Leg Left - 6: No Drift Limb Ataxia - 7: Absent Sensory - 8: Normal Best Language - 9: Mild/Moderate Aphasia Dysarthia - 10: Mild/Moderate Dysarthia Extinction And Inattention - 11: 0 Score: Total Score: 2 Physical Exam Const: GENERAL APPEARANCE: cooperative; not ill appearing and not frail appearing HENMT: COMMON NORMALS: normocephalic, atraumatic and Normal external nose present HEAD & SCALP: normocephalic and atraumatic FACE & SINUS: normal facial exam and face symmetric NOSE: Normal external nose present Eye: COMMON NORMALS: Equal, round and reactive pupils present and EOMs intact bilaterally PUPIL: Yes Equal, round and reactive pupils present Neck/C-Spine: GENERAL: Yes trachea midline Chest: CHEST: Yes Symmetrical chest wall rise Resp: COMMON NORMALS: normal respiratory effort, No retractions, No use of accessory muscles and clear to auscultation bilaterally AUSCULTATION: clear to auscultation bilaterally Cardio: COMMON NORMALS: regular rate and regular rhythm RATE: regular rate RHYTHM: regular rhythm GI: COMMON NORMALS: Normal to inspection, nondistended, normoactive bowel sounds present Extremity: COMMON NORMALS: no pedal edema Neuro: VIRI COMA SCALE: document GCS findings Viri coma scale eye opening: Spontaneous [place] coma scale verbal response: Orientated [place] coma scale motor response: Obey commands Viri coma scale total score: 15 COORDINATION/BALANCE: [id number] test normal and [id number]-[id number] test normal SENSORY EXAM: Yes extremities (intact) MOTOR EXAM: Pronator motor function not present and Normal motor muscle tone present throughout COORDINATION: [id number] test normal and [id number]-gu-[id number] test normal Psych: COMMON NORMALS: speech normal SPEECH: Yes normal speech Skin: COMMON NORMALS: no rashes or lesions noted GENERAL SKIN EXAM: no rashes or lesions noted Course Consultations: Consultation #1: Hans, neurology [facility] Vital Signs: Vital signs: Vital Signs Temperature 98.5 F 12/06/22 01:08 Pulse Rate 87 12/06/22 04:12 Respiratory Rate 16 12/06/22 04:12 Blood Pressure 152/99 12/06/22 04:12 Pulse Oximetry 99 12/06/22 04:12 Oxygen Delivery Me thod Room Air 12/06/22 01:38 MDM - Neuro Symptoms/Deficit Medical Decision Making 57 year old functional male with improving stroke symptoms. His current symptoms are simply that of dysarthria, and expressive aphasia. Both are improved from onset of symptoms and his NIH scale is currently two period however, this is a young, functional male. His deficits although few, could be quite disabling. Stroke team was contacted, and I consulted with doctor Maxwell from [facility]. He agrees with the above, and agrees with the use of TPA should the patient consent to thrombolytics. He has no contraindications. His blood pressure is within range currently. As head CT was negative for acute findings. His CTA is not remarkable for obstructive clot or stenosis. I counseled the patient and his on our findings and, and their recommendation to use TPA. By the time I was able to get back in the room and discuss this, though, the patient's speech had become much improved. It was n early normal at this point. On reexamination, using the standardized NIH recognition and language card, he named all objects and interpreted pictures perfectly. He essentially made a full recovery in the ER. He of course at this point declined use of TPA. Laboratory reveals a normal CBC, chronically elevated creatinine and baseline, and negative alcohol, and a urine drug screen that is positive for amphetamines and marijuana, which may be contributory. UA is negative. CT findings as above, with multiple chronic tooth abscesses.. He wishes to go home. Since he has made essentially a full recovery in the ER, he'll be allowed. Outpatient follow up to continue work up. It be placed on a full dose aspirin, and atorvastatin in the meantime. Lab Data 12/06/22 01:22 12/06/22 01:[address] 12/06/22 01:01 IMPRESSION: No acute findings. ASSESSMENT: ASPECTS (Rebekah Stroke Program Early CT Score) is 10. Head/Neck CTA 12/06/22 01:01 IMPRESSION: 1. No large vessel stenosis or occlusion. 2. Multiple bilateral maxillary and mandibular tooth abscesses. IMPRESSION: 1. Atherosclerotic disease of the right extracranial internal carotid artery with no stenosis by NASCET criteria. 2. Normal left extracranial internal carotid artery. 3. Dominant left vertebral artery with mild proximal and distal stenoses. 4. Widely patent non dominant right vertebral artery. REFERENCES: NASCET CRITERIA. The degree of stenosis in the cervical segment of the internal carotid artery is based on NASCET criteria. Normal is no stenosis. Mild is less than 50% stenosis. Moderate is 50-69% stenosis. Severe is 70% to 99% stenosis. Total occlusion is no detectable patent lumen. ADDENDUM: 12/06/22 0222 THIS REPORT CONTAINS FINDINGS THAT MAY BE CRITICAL TO PATIENT CARE. The findings were verbally communicated via telephone conference with ARIES ABBASI at 2:21 AM CDT on 12/06/2022. The findings were acknowledged and understood. Chest X-Ray 12/06/22 01:02 IMPRESSION: No acute findings. Laboratory Results WBC 10.65 10^3/uL (3.29-11.43) 12/06/22 01:22 RBC 4.45 10^6/uL (3.85-5.65) 12/06/22 01:22 Hgb 13.00 g/dL (11.27-16.99) 12/06/22 01:22 Hct 40.7 % (37-53) 12/06/22 01:22 MCV 91.5 fl (82-101) 12/06/22 01:22 MCH 29.2 pg (27-33) 12/06/22 01:22 MCHC 31.9 g/dL (30-55) 12/06/22 01:22 RDW 13.9 % (12.1-15.1) 12/06/22 01:22 Plt Count 198 10^3/cmm (157-399) 12/06/22 01:22 MPV 9.4 fL (7.4-10.4) 12/06/22 01:22 Neut % (Auto) 73.5 % 12/06/22 01:22 Lymph % (Auto) 16.9 % 12/06/22 01:22 Greene % (Auto) 6.2 % 12/06/22 01:22 Eos % (Auto) 2.5 % 12/06/22 01:22 Baso % (Auto) 0.6 % 12/06/22 01:22 Neut # (Auto) 7.83 10^3/uL (1.8-7.7) H 12/06/22 01:22 Lymph # (Auto) 1.8 10^3/uL (0.8-4.8) 12/06/22 01:22 Greene # (Auto) 0.7 10^3/uL (0.2-0.9) 12/06/22 01:22 Eos # (Auto) 0.3 10^3/uL (0.0-0.8) 12/06/22 01:22 Baso # (Auto) 0.1 10^3/uL (0.0-0.1) 12/06/22 01:22 Nucleated RBC % (auto) 0 % 12/06/22 01:22 Nucleated RBCs # 0.0 /100WBC 12/06/22 01:22 PT 12.70 SECONDS (12.1-14.9) 12/06/22 01:22 INR 0.93 (0.8-1.2) 12/06/22 01:22 APTT 28.8 SECONDS (23.9-36.7) 12/06/22 01:22 Sodium 140 mmol/L (136-145) 12/06/22 01:22 Potassium 3.4 mmol/L (3.5-5.1) L 12/06/22 01:22 Chloride 103 mmol/L (98-107) 12/06/22 01:22 Carbon Dioxide 27 mmol/L (22-29) 12/06/22 01:22 Anion Gap 13.4 (5-19) 12/06/22 01:22 BUN 26 mg/dL (6-20) H 12/06/22 01:22 Creatinine 1.7 mg/dL (0.7-1.2) H 12/06/22 01:22 GFR Calculation 41.5 mL/min (90-130) L 12/06/22 01:22 Glucose 132 mg/dL (65-115) H 12/06/22 01:22 POC Glucose 185 mg/dL (70-110) H 12/06/22 01:03 Calculated Osmolality 297 mOsm/kg (285-295) H 12/06/22 01:22 Calcium 9.0 mg/dL (8.5-10.5) 12/06/22 01:22 Total Bilirubin 0.2 mg/dL (0.15-1.2) 12/06/22 01:22 AST 27 U/L (0-40) 12/06/22 01:22 ALT 17 U/L (0-41) 12/06/22 01:22 Alkaline Phosphatase 82 U/L (40-130) 12/06/22 01:22 Total Protein 6.1 g/dL (6.6-8.7) L 12/06/22 01:22 Albumin 3.5 g/dL (3.5-5.2) 12/06/22 01:22 Globulin 2.6 g/dL (1.3-4.6) 12/06/22 01:22 Urine Color Yellow (Yellow) 12/06/22 01:40 Urine Appearance Clear (CLEAR) 12/06/22 01:40 Urine pH 7 (5-7) 12/06/22 01:40 Ur Specific [place] 1.010 (1.005-1.030) 12/06/22 01:40 Urine Protein Trace (Negative) 12/06/22 01:40 Urine Glucose (UA) Norm (Normal) 12/06/22 01:40 Urine Ketones Negative (Negative) 12/06/22 01:40 Urine Blood Neg (Negative) 12/06/22 01:40 Urine Nitrate Negative (Negative) 12/06/22 01:40 Urine Bilirubin Neg (Negative) 12/06/22 01:40 Urine Urobilinogen Norm mg/dL (Negative) 12/06/22 01:40 Ur Leukocyte Esterase Negative (Negative) 12/06/22 01:40 Urine RBC 0-4 /hpf (0-2) H 12/06/22 01:40 Urine WBC 0-4 /hpf (0-5) H 12/06/22 01:40 Ur Squamous Epith Cells 0-4 /hpf (0-5) H 12/06/22 01:40 Amorphous Sediment Not Reportable 12/06/22 01:40 Urine Bacteria Trace /hpf (NONE) 12/06/22 01:40 Urine Opiates Screen Negative ng/mL (Negative) 12/06/22 01:40 Ur Barbiturates Screen Negative ng/mL (Negative) 12/06/22 01:40 Ur Phencyclidine Scrn Negative ng/mL (Negative) 12/06/22 01:40 Ur Amphetamines Screen Positive ng/mL (Negative) H 12/06/22 01:40 U Benzodiazepines Scrn Negative ng/mL (Negative) 12/06/22 01:40 Urine Cocaine Screen Negative ng/mL (Negative) 12/06/22 01:40 U Marijuana (THC) Screen Positive ng/mL (Negative) H 12/06/22 01:40 Ethyl Alcohol < 10 mg/dL (0-10) 12/06/22 01:22 Critical Care Time Critical Care Time: Critical Care Time: Yes Total Critical Care Time: 35 Attestation: This case had a high probability of a clinically significant, sudden, or life threatening deterioration of this patient's condition which required my full and direct attention, intervention and personal management. Time excludes any procedures performed. Discharge Plan Discharge Patient Disposition: Home Clinical Impression: Transient cerebral ischemia Condition: Stable Prescriptions: New aspirin 325 mg capsule 325 mg PO DAILY Qty: 30 0RF atorvastatin 40 mg tablet 40 mg PO DAILY Qty: 30 0RF Discontinued aspirin 81 mg Tablet,Delayed Release (Dr/Ec) 81 mg PO QAM No Action magnesium oxide 400 mg magnesium tablet 400 mg PO DAILY Qty: 90 1RF spironolactone 50 mg tablet 50 mg PO QAM Qty: 90 1RF furosemide [Lasix] 40 mg tablet 40 mg PO QAM PRN (Reason: edema) Qty: 90 1RF carvedilol 25 mg tablet 25 mg PO DAILY Qty: 90 3RF Rx Instructions: must administer with a meal/food omeprazole 40 mg capsule,delayed release(DR/EC) 40 mg PO DAILY Qty: 30 0RF Discharge Orders: Discharge ED (Routine); Ordered 12/06/22 Ordered By: Aries Abbasi Patient Instructions: TIA Activity Restrictions/Additional Instructions: Stop your 81 mg aspirin daily. Increase the dose to a full dose aspirin (325 mg) daily. Other new medications as directed. Follow-up with your doctor this coming week. Further outpatient testing may be necessary. Return for any return of symptoms. Coding Level of Care Code ED Technical Illustrator for Jasmina Greco
[2022-12-06 01:39] LABS: Basophils # 0.1 10^3/uL (0.0-0.1); Basophils % 0.6 %; Eosinophils # 0.3 10^3/uL (0.0-0.8); Eosinophils % 2.5 %; Hematocrit 40.7 % (37-53); Lymphocytes # 1.8 10^3/uL (0.8-4.8); Lymphocytes % 16.9 %; Mean Corpuscular HGB Conc 31.9 g/dL (30-55); Mean Corpuscular Hemoglobin 29.2 pg (27-33); Mean Corpuscular Volume 91.5 fl (82-101); Mean Platelet Volume 9.4 fL (7.4-10.4); Monocytes # 0.7 10^3/uL (0.2-0.9); Monocytes % 6.2 %; Neutrophils # 7.83 10^3/uL (1.8-7.7); Neutrophils % 73.5 %; Nucleated Red Blood Cells % 0 %; Platelet Count 198 10^3/cmm (157-399); Red Blood Count 4.45 10^6/uL (3.85-5.65); Red Cell Distribution Width 13.9 % (12.1-15.1); White Blood Count 10.65 10^3/uL (3.29-11.43)
[2022-12-06 01:49] LABS: INR 0.93 (0.8-1.2)
[2022-12-06 01:50] LABS: Partial Thromboplastin Time 28.8 SECONDS (23.9-36.7)
[2022-12-06 01:56] LABS: Glucose Point of Care 185 mg/dL (70-110)
[2022-12-06 01:58] LABS: Add Urine Culture? No; Add Urine Microscopic? YES; Bacteria Urine TRACE /hpf; Bilirubin Urine Neg (Negative); Blood Urine Neg (Negative); Glucose Urine UA Norm (Normal); Ketones Urine Negative (Negative); Leukocyte Esterase Urine Negative (Negative); Nitrate Urine Negative (Negative); Protein Urine Trace (Negative); RBC Urine 0-4 /hpf (0-2); Squamous Epithelial Cell Urine 0-4 /hpf (0-5); Urine Appearance Clear (CLEAR); Urine Color Yellow (Yellow); Urobilinogen Urine Norm (Negative); WBC Urine 0-4 /hpf (0-5); pH Urine 7 (5-7)
[2022-12-06 01:58] LABS: Alanine Aminotransferase 17 U/L (0-41); Albumin Level 3.5 g/dL (3.5-5.2); Alkaline Phosphatase 82 U/L (40-130); Anion Gap 13.4 (5-19); Aspartate Amino Transferase 27 U/L (0-40); Blood Urea Nitrogen 26 mg/dL (6-20); Carbon Dioxide 27 mmol/L (22-29); Chloride 103 mmol/L (98-107); Globulin 2.6 g/dL (1.3-4.6); Glomerular Filtration Rate 41.5 mL/min (90-130); Glucose 132 mg/dL (65-115); Osmolality Calculated 297 mOsm/kg (285-295); Potassium 3.4 mmol/L (3.5-5.1); Sodium 140 mmol/L (136-145); Total Bilirubin 0.2 mg/dL (0.15-1.2); Total Protein 6.1 g/dL (6.6-8.7)
[2022-12-06 02:02] LABS: Amphetamines Screen Urine Positive (Negative); Barbiturates Screen Urine Negative (Negative); Benzodiazepines Screen Urine Negative (Negative); Cocaine Screen Urine Negative (Negative); Opiate Screen Urine Negative (Negative); PCP Screen Urine Negative (Negative); THC Screen Urine Positive (Negative)
[2022-12-06 02:18] LABS: Alcohol Level < 10 mg/dL (0-10)
--- NOTE | 2022-12-10 14:19 | DCPLANNER ---
Addendum entered by Pavithra Carlos 12/17/22 11:20: Patient did attend appointment scheduled to establish care Original Note: qa manager called patient due to no primary care physician - patient stated that he would like to be established with Joao Hendrix. qa manager called the [facility], gave clinic patients information, a follow up appointment was scheduled for Thursday, December 15, 2022 at 11:00 with Joao. qa manager gave patient the appointment information.
== END 2022-12-06 04:16 | disposition home or self-care (01) ==
PROVIDERS: Emergency Provider Emergency Medicine
DX: G45.9 Transient cerebral ischemic attack, unspecified (principal); Z79.82 Long term (current) use of aspirin; I10 Essential (primary) hypertension; Z95.810 Presence of automatic (implantable) cardiac defibrillator; F17.210 Nicotine dependence, cigarettes, uncomplicated
CPT/HCPCS: 36415; 36416; 70450; 70496; 70498; 71045; 80053; 80306; 80307; 81001; 82962; 85025; 85610; 85730; 93005; 99285; Q9967

== ENCOUNTER → 2022-12-17 14:15 | Outpatient (BNVA) | payer MEDICARE, SELFPAY | PROVIDERS: PCP Nurse Practitioner Family; Visit Provider Internal Medicine Cardiovascular Disease | DX: Z45.02 Encounter for adjustment and management of automatic implantable cardiac defibrillator (principal) | CPT/HCPCS: 93296 ==

== ENCOUNTER 2023-01-14 06:00 | Outpatient (RCR) | payer OTHER, SELFPAY | END 2023-02-09 23:59 | disposition home or self-care (01) | LOC: WST 06:00 | PROVIDERS: Visit Provider Family Medicine | DX: I69.922 Dysarthria following unspecified cerebrovascular disease (principal) | CPT/HCPCS: 92523 ==

== ENCOUNTER 2023-02-10 06:00 | Outpatient (RCR) | payer OTHER, SELFPAY | END 2023-03-11 23:59 | disposition home or self-care (01) | LOC: WST 06:00 | PROVIDERS: Visit Provider Family Medicine | DX: I69.922 Dysarthria following unspecified cerebrovascular disease (principal) | CPT/HCPCS: 92507 ==

== ENCOUNTER 2023-02-19 07:19 | Emergency (ER) | payer OTHER, SELFPAY ==
[2023-02-19] VITALS (7 sets, daily range): BP systolic 155–163; BP diastolic 102–103; PULSE 87–114; RESP 16–28; TEMP 36.9; O2SAT 98–100; BMI 26.1
--- NOTE | 2023-02-19 07:20 | W.ED.SOB ---
HPI - SOB/Dyspnea General: Chief Complaint: Shortness of Breath/Dyspnea Stated Complaint: resp distress Time Seen by Provider: 02/19/23 07:19 Source: patient Mode of arrival: EMS History of Present Illness: HPI Narrative: 57-year-old male presents emergency room with difficulty breathing. He is not normally on oxygen when EMS arrived he was struggling to breathe is hypoxic at 76% O2 sat on room air with respiratory rate in the 30s. He was given albuterol and a DuoNeb he is improved quite a bit by the time he arrived here. Patient has a history of congestive heart failure does not notice any swelling in his legs he does state he has some orthopnea. Denies any chest or abdominal pain at this time MD elicited complaint: shortness of breath Pertinent past history: COPD and congestive heart failure Exacerbating factors: lying flat and coughing Relieving factors: oxygen, rest, bronchodilators and upright position Known history of: COPD and congestive heart failure Associated symptoms: Reports cough; Deny abdominal pain, chest congestion, chest pain, diaphoresis, dizziness, extremity pain, fever(s), hemoptysis, lightheadedness, myalgias, nausea, orthopnea, palpitations, paresthesias, polydipsia, polyuria, rash, sense of impending doom, syncope or vomiting Review of Systems Const: Denies: fever(s), chills or diaphoresis Card: Denies: chest pain, palpitations, lightheadedness, syncope or orthopnea Resp: Denies: dyspnea, hemoptysis or chest congestion GI: Denies: abdominal pain, nausea or vomiting : Denies: dysuria, urinary frequency or urinary urgency Musc: Denies: neck pain, back pain or extremity pain Skin/Breast: Denies: rash Neuro: Denies: dizziness Endo: Denies: polyuria or polydipsia PFSH ED PFSH: Medical History Cardiomyopathy GERD (gastroesophageal reflux disease) HTN (hypertension) ICD (implantable cardioverter-defibrillator), single, in situ Pulmonary thromboembolism Surgical History AICD (automatic cardioverter/defibrillator) present History of back surgery (~1997) Family History Other Diabetes Hypertension Social History Smoking and tobacco/nicotine status: current every day tobacco/nicotine user Alcohol intake: current Alcohol intake frequency: other Physical Exam Const: COMMON NORMALS: no acute distress GENERAL APPEARANCE: cooperative and comfortable ORIENTATION/CONSCIOUSNESS: Yes awake, Yes oriented to person, Yes oriented to place and Yes oriented to time HENMT: COMMON NORMALS: normocephalic, atraumatic and hearing grossly normal bilaterally HEAD & SCALP: normocephalic and atraumatic Resp: COMMON NORMALS: normal respiratory effort, No retractions, No use of accessory muscles and clear to auscultation bilaterally AUSCULTATION: clear to auscultation bilaterally Cardio: COMMON NORMALS: regular rate, regular rhythm and No murmurs present (Cardio) RATE: regular rate RHYTHM: regular rhythm GI: COMMON NORMALS: Soft to palpation and No hepatosplenomegaly present AUSCULTATION: Yes normoactive bowel sounds PALPATION: Yes Soft to palpation, No Tenderness to palpation present (GI), No Guarding due to palpation present (GI) and Yes No hepatosplenomegaly present Extremity: COMMON NORMALS: normal to inspection, capillary refill normal, no clubbing, cyanosis or edema, no calf tenderness and no pedal edema Neuro: SENSORIUM/ORIENTATION: Yes oriented to person, Yes oriented to place and Yes oriented to time Skin: COMMON NORMALS: no rashes or lesions noted GENERAL SKIN EXAM: no rashes or lesions noted Course Vital Signs: Vital signs: Vital Signs Temperature 98.4 F 02/19/23 07:20 Pulse Rate 89 02/19/23 09:29 Respiratory Rate 17 02/19/23 09:19 Blood Pressure 163/102 02/19/23 08:30 Pulse Oximetry 100 02/19/23 09:19 Oxygen Delivery Me thod Room Air 02/19/23 09:19 Oxygen Flow Rate 4 02/19/23 08:30 MDM - SOB/Dyspnea Medical Decision Making Patient improved after diuresis steroids nebulizers she preferred to go home we discussed possibly being admitted but he states he has animals he needs to take care of and wants to go home we will increase his Lasix to 60 mg daily for 3 days then resume 40 mg daily. Use albuterol as needed recheck if has any worsening or changes symptoms Medical Records I reviewed the patient's medical records. Lab Data I reviewed the patient's lab results. 02/19/23 07:26 02/19/23 07:26 Labs/Radiology: Laboratory Results WBC 8.76 10^3/uL (3.29-11.43) 02/19/23 07: RBC 5.01 10^6/uL (3.85-5.65) 02/19/23 07:26 Hgb 14.80 g/dL (11.27-16.99) 02/19/23 07:26 Hct 44.0 % (37-53) 02/19/23 07: MCV 87.8 fl (82-101) 02/19/23 07: MCH 29.5 pg (27-33) 02/19/23 07: MCHC 33.6 g/dL (30-55) 02/19/23 07: RDW 15.3 % (12.1-15.1) H 02/19/23 07:26 Plt Count 197 10^3/cmm (157-399) 02/19/23 07:26 MPV 11.2 fL (7.4-10.4) H 02/19/23 07:26 Neut % (Auto) 78.9 % 02/19/23 07: Lymph % (Auto) 14.4 % 02/19/23 07:26 [place] % (Auto) 5.8 % 02/19/23 07:26 Eos % (Auto) 0.2 % 02/19/23 07: Baso % (Auto) 0.5 % 02/19/23 07: Neut # (Auto) 6.91 10^3/uL (1.8-7.7) 02/19/23 07:26 Lymph # (Auto) 1.3 10^3/uL (0.8-4.8) 02/19/23 07:26 [place] # (Auto) 0.5 10^3/uL (0.2-0.9) 02/19/23 07:26 Eos # (Auto) 0.0 10^3/uL (0.0-0.8) 02/19/23 07:26 Baso # (Auto) 0.0 10^3/uL (0.0-0.1) 02/19/23 07:26 Nucleated RBC % (auto) 0 % 02/19/23 07:26 Nucleated RBCs # 0.0 /100WBC 02/19/23 07:26 Specimen Type Arterial 02/19/23 08:11 Sample Site Brachial, right 02/19/23 08:11 ABG pH 7.47 (7.35-7.45) H 02/19/23 08:11 ABG pCO2 30.1 mmHg (35-45) L 02/19/23 08:11 ABG pO2 78.6 mmHg (80.0-100.0) L 02/19/23 08:11 ABG PO2/FiO2 Ratio 0 02/19/23 08:11 ABG HCO3 22.1 mmol/L (22-26) 02/19/23 08:11 ABG O2 Saturation 97.0 02/19/23 08:11 ABG Base Excess -0.5 mmol/L (-2.0-2.0) 02/19/23 08:11 Trace Test N/a 02/19/23 08:11 A-a O2 Gradient 10.9 mmHg (5-10) H 02/19/23 08:11 Hematocrit 44.1 % (42-52) 02/19/23 08:11 Hgb O2 Saturation 95.6 % (95-100) 02/19/23 08:11 Carboxyhemoglobin 1.0 %THgb (0.4-20.1) 02/19/23 08:11 Methemoglobin 0.5 % (0.4-1.5) 02/19/23 08:11 Total Hemoglobin 14.4 g/dL (14-18) 02/19/23 08:11 Sodium 134.0 mmol/L (131-143) 02/19/23 08:11 Potassium 3.8 mmol/L (3.5-5.0) 02/19/23 08:11 Glucose 154.0 mg/dL (70-115) H 02/19/23 08:11 Ionized Calcium 1.2 mmol/L (1.1-1.4) 02/19/23 08:11 O2 Delivery Device Nc 02/19/23 08:11 O2 Liters/Min 2.0 % 02/19/23 08:11 FiO2 28.0 % 02/19/23 08:11 Medical Equipment Repair Technician ID Amh 02/19/23 08:11 Sodium 133 mmol/L (136-145) L 02/19/23 07:26 Potassium 4.1 mmol/L (3.5-5.1) 02/19/23 07:26 Chloride 97 mmol/L (98-107) L 02/19/23 07:26 Carbon Dioxide 23 mmol/L (22-29) 02/19/23 07:26 Anion Gap 17.1 (5-19) 02/19/23 07:26 BUN 17 mg/dL (6-20) 02/19/23 07:26 Creatinine 1.5 mg/dL (0.7-1.2) H 02/19/23 07:26 GFR Calculation 47.9 mL/min (90-130) L 02/19/23 07:26 Glucose 131 mg/dL (65-115) H 02/19/23 07:26 Calculated Osmolality 279 mOsm/kg (285-295) L 02/19/23 07:26 Calcium 9.6 mg/dL (8.5-10.5) 02/19/23 07:26 Total Bilirubin 1.1 mg/dL (0.15-1.2) 02/19/23 07:26 AST 33 U/L (0-40) 02/19/23 07:26 ALT 22 U/L (0-41) 02/19/23 07:26 Alkaline Phosphatase 93 U/L (40-130) 02/19/23 07:26 Troponin T Baseline 62 ng/L (0-15) H 02/19/23 07:26 Troponin T 120 Minute 57.72 ng/L (0-15) H 02/19/23 09:25 Delta Troponin T -4.28 ABS# (0-10) L 02/19/23 09:25 NT-Pro-B Natriuret Pep 37489 pg/mL (0-125) H 02/19/23 07:26 Total Protein 7.4 g/dL (6.6-8.7) 02/19/23 07:26 Albumin 4.0 g/dL (3.5-5.2) 02/19/23 07:26 Globulin 3.4 g/dL (1.3-4.6) 02/19/23 07:26 All radiology interpretation(s) finalized by discharge Discharge Plan Discharge Patient Disposition: Home Clinical Impression: Congestive heart failure, Cardiomyopathy Condition: Stable Prescriptions: New Lasix 20 mg tablet 60 mg PO DAILY Qty: 9 0RF Rx Instructions: Increase your Lasix to 60 mg daily for 3 days then resume 40 mg daily. No Action spironolactone 50 mg tablet 50 mg PO QAM Qty: 90 1RF furosemide [Lasix] 40 mg tablet 40 mg PO QAM PRN (Reason: edema) Qty: 90 1RF Lipitor 80 mg Tablet 80 mg PO BEDTIME aspirin 325 mg Tablet 325 mg PO BEDTIME Prilosec 20 mg Capsule,Delayed Release(Dr/Ec) 40 mg PO QAM albuterol sulfate 90 mcg/actuation Hfa Aerosol Inhaler 2 puff INHALATION QID PRN (Reason: Shortness Of Breath) lisinopril 40 mg Tablet 20 mg PO DAILY potassium chloride 20 mEq Tablet Extended Release 20 meq PO DAILY PRN (Reason: when taking lasix) empagliflozin 25 mg Tablet 12.5 mg PO DAILY magnesium oxide 400 mg magnesium tablet 400 mg PO BEDTIME Discharge Orders: Discharge ED (Routine); Ordered 02/19/23 Ordered By: Christopher Welch Discharge Diet: Usual diet Discharge Activity: Increase activity as tolerated Patient Instructions: Opioid Safety, Pain Management Activity Restrictions/Additional Instructions: Thank you for choosing [facility] for your healthcare needs today. Please realize this is an emergency room and that we are providing you with a medical screening exam and this may not be complete and all inclusive of all the testing and or work up that you may need to determine your ailment or severity of your illness. It is very important that you follow up as instructed or that you return to the Emergency Department should you have concerns or if your condition changes or worsens in any way. Increase your Lasix to 60 mg daily for 3 days then resume 40 mg daily. You should follow-up with your doctor early next week to recheck laboratory studies and reevaluate for effectiveness of the diuresis. Coding Level of Care Code ED Installers Mechanical for Jasmina Greco
--- NOTE | 2023-02-19 07:22 | ECG_ITS ---
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 Measurements Intervals [place] Rate: 108 P: 71 DC: 146 QRS: 44 QRSD: 102 T: 141 QT: 355 QTc: 477 Interpretive Statements SINUS TACHYCARDIA WITH OCCASIONAL VENTRICULAR PREMATURE COMPLEXES WITH OCCASIONAL SUPRAVENTRICULAR PREMATURE COMPLEXES POSSIBLE LEFT ATRIAL ENLARGEMENT [-0.1mV P-WAVE IN V1/V2] LEFT VENTRICULAR HYPERTROPHY AND ST-T CHANGE [VOLTAGE CRITERIA PLUS ST/T ABNORMALITY] Compared to ECG 12/06/2022 01:23:19 Ventricular premature complex(es) now present Sinus rhythm no longer present ST (T wave) deviation still present Electronically Signed On 02-19-2023 20:47:15 AQUATIC INSTRUCTOR by Marek Guadalupe M.D. [id number]
--- NOTE | 2023-02-19 07:35 | XR_ITS ---
WS: [id number] Portable AP upright chest, 02/19/2023 Clinical Data: dyspnea/cough Comparison: Portable chest, 12/06/2022 Findings: No nodules, masses or effusions are seen. The heart is normal. The pulmonary vascularity is not increased. No pneumonia or pneumothorax is seen. The single lead pacemaker remains in the same p osition. The aortic arch and descending thoracic aorta show minimal calcification and tortuosity. The re are monitor leads on the chest wall. Impression: Single lead cardiac pacemaker and minimal atherosclerosis.
[2023-02-19 07:49] LABS: Basophils % 0.5 %; Eosinophils % 0.2 %; Lymphocytes # 1.3 10^3/uL (0.8-4.8); Lymphocytes % 14.4 %; Mean Corpuscular HGB Conc 33.6 g/dL (30-55); Mean Corpuscular Hemoglobin 29.5 pg (27-33); Mean Corpuscular Volume 87.8 fl (82-101); Mean Platelet Volume 11.2 fL (7.4-10.4); Monocytes # 0.5 10^3/uL (0.2-0.9); Monocytes % 5.8 %; Neutrophils # 6.91 10^3/uL (1.8-7.7); Neutrophils % 78.9 %; Nucleated Red Blood Cells % 0 %; Platelet Count 197 10^3/cmm (157-399); Red Blood Count 5.01 10^6/uL (3.85-5.65); Red Cell Distribution Width 15.3 % (12.1-15.1); White Blood Count 8.76 10^3/uL (3.29-11.43)
--- NOTE | 2023-02-19 07:52 | PC.PHAR ---
pt brought in medication bottles-pt states he takes the medications like the bottles say to take them-pt states he just got an albuterol inhaler and uses prn pt didnt bring in inhaler-
[2023-02-19 08:04] LABS: Alanine Aminotransferase 22 U/L (0-41); Alkaline Phosphatase 93 U/L (40-130); Anion Gap 17.1 (5-19); Aspartate Amino Transferase 33 U/L (0-40); Blood Urea Nitrogen 17 mg/dL (6-20); Calcium 9.6 mg/dL (8.5-10.5); Carbon Dioxide 23 mmol/L (22-29); Chloride 97 mmol/L (98-107); Globulin 3.4 g/dL (1.3-4.6); Glomerular Filtration Rate 47.9 mL/min (90-130); Glucose 131 mg/dL (65-115); NT Pro B Type Natriuretic Pept 29456 pg/mL (0-125); Osmolality Calculated 279 mOsm/kg (285-295); Potassium 4.1 mmol/L (3.5-5.1); Sodium 133 mmol/L (136-145); Total Bilirubin 1.1 mg/dL (0.15-1.2); Total Protein 7.4 g/dL (6.6-8.7)
[2023-02-19] MEDS: ipratropium-albuterol 3 mL Neb INHALATION ×2 (08:13→09:19)
[2023-02-19 08:22] LABS: ABG PCO2 30.1 mmHg (35-45); ABG PH Result 7.47 (7.35-7.45); Alveolar-Arterial Oxygen Gradi 10.9 mmHg (5-10); Arterial Blood Gas Hematocrit 44.1 % (42-52); Base Excess ABG -0.5 mmol/L (-2.0-2.0); Blood Gas Operator Identificat AMH; Blood Gas Sample Site Brachial, right; Blood Gas Sample Type Arterial; HCO3 ABG 22.1 mmol/L (22-26); HGB O2 Sat 95.6 % (95-100); Ionized Calcium Level - ABG 1.2 mmol/L (1.1-1.4); Methemoglobin 0.5 % (0.4-1.5); Oxygen Device NC; PO2 ABG 78.6 mmHg (80.0-100.0); PO2 FiO2 Ratio Arterial Blood 0; Potassium Level - ABG 3.8 mmol/L (3.5-5.0); Total Hemoglobin 14.4 g/dL (14-18)
[2023-02-19] MEDS: FUROsemide 10 mg/mL SDV 10mL 60 MG IVP (08:27)
[2023-02-19 08:36] LABS: Troponin(5th) Baseline 62 ng/L (0-15)
[2023-02-19 09:50] LABS: Troponin 5 2HR 57.72 ng/L (0-15)
[2023-02-19 09:51] LABS: Troponin 5 2HR Delta -4.28 ABS# (0-10)
== END 2023-02-19 10:17 | disposition home or self-care (01) ==
PROVIDERS: Emergency Provider Family Medicine
DX: I11.0 Hypertensive heart disease with heart failure (principal); I50.9 Heart failure, unspecified; I43 Cardiomyopathy in diseases classified elsewhere; Z79.82 Long term (current) use of aspirin; Z95.810 Presence of automatic (implantable) cardiac defibrillator; Z72.0 Tobacco use
CPT/HCPCS: 36415; 36600; 71045; 80051; 80053; 82330; 82805; 83880; 84484; 85025; 93005; 94640; 96374; 99285; J1940

== ENCOUNTER → 2023-03-02 13:57 | Outpatient (BNVA) | payer OTHER, SELFPAY | PROVIDERS: Visit Provider Internal Medicine Cardiovascular Disease | DX: I42.0 Dilated cardiomyopathy (principal); I10 Essential (primary) hypertension; Z95.810 Presence of automatic (implantable) cardiac defibrillator; K21.9 Gastro-esophageal reflux disease without esophagitis; F17.200 Nicotine dependence, unspecified, uncomplicated | CPT/HCPCS: 99214 ==

== ENCOUNTER → 2023-08-03 10:46 | Outpatient (BNVA) | payer OTHER, SELFPAY | PROVIDERS: PCP Family Medicine; Visit Provider Internal Medicine Cardiovascular Disease | DX: I42.9 Cardiomyopathy, unspecified (principal); I26.99 Other pulmonary embolism without acute cor pulmonale; Z95.810 Presence of automatic (implantable) cardiac defibrillator; G47.30 Sleep apnea, unspecified; I12.9 Hypertensive chronic kidney disease with stage 1 through stage 4 chronic kidney disease, or unspecified chronic kidney disease; N18.9 Chronic kidney disease, unspecified; E74.39 Other disorders of intestinal carbohydrate absorption; F17.200 Nicotine dependence, unspecified, uncomplicated | CPT/HCPCS: 99214 ==

== ENCOUNTER 2023-10-11 11:47 | Outpatient (CLI) | payer OTHER, SELFPAY ==
--- NOTE | 2023-10-11 11:51 | USCV_ITS ---
Hakan Black Age: 57 Gender: M : 1965 Exam Date: 10/11/2023 12:20 Ordering Phys: Tyrese Manzo Technologist: CT Exam Location: [facility] [place]_ Indication: cad BP: 110 / 60 HR: 91 Rhythm: Sinus Technical Quality: Adequate MEASUREMENTS (Male / Female) Normal Values 2D ECHO LVOT Diameter 2.5 cm LV Ejection Fraction MOD 2C 22.0 % LV Ejection Fraction 2C AL 22.8 % LA Diameter 4.5 cm RA Systolic Volume 4C AL 38.3 ml RA Systolic Volume 4C MOD 36.1 ml LA Sys Volume AL 85.3 cm cubed LA Sys Volume Index AL 39.3 cm cubed/m squared Aorta at Sinotubular Diameter 2.6 cm IVC Diameter 1.7 cm M-MODE LA Ao Ratio MM 1.4 AV Cusp Separation MM 2.2 cm DOPPLER AV Peak Velocity 96.0 cm/s LVOT Peak Velocity 76.0 cm/s AV Area Cont Eq vti 4.2 cm squared AV Area Cont Eq pk 3.8 cm squared MV Peak Velocity 95.0 cm/s MV Area PHT 8.6 cm squared Mitral E to A Ratio 1.7 Right Atrial Pressure 3.0 mmHg FINDINGS Left Ventricle Severe diffuse hypokinesia of the left ventricule with an ejection fraction of 22%. Moderately dilated LV cavity Right Ventricle Pacemaker/defibrillator wire in the right ventricle/righ Right Atrium The right atrium is normal in size. Left Atrium Mildly increased left atrial size. Mitral Valve Mild mitral valve regurgitation. Mild mitral annular calcification Aortic Valve No gross abnormalities noted Tricuspid Valve No gross abnormalities noted Pulmonic Valve Not visualized Pericardium No pericardial effusion. Aorta Normal ascending aorta dimension. IVC The inferior vena cava appears normal. CONCLUSIONS Pacemaker/defibrillator wire in the right ventricleSevere diffuse hypokinesia of the left ventricule with an ejection fraction of 20%. Moderately dilated LV cavity. Mildly increased left atrial size. Mild mitral valve regurgitation. Mild mitral annular calcification. There is no pericardial effusion. There are no intracardiac masses. Pacemaker/defibrillator wire in the right ventricle Compared to the study from 09/23/2020, there may not be a significant change. Dr Marek Guadalupe MD [facility] (Electronically Signed) Final Date: 13 October 2023 11:23 S
== END 2023-10-11 11:48 | disposition home or self-care (01) ==
LOC: RAD 11:47
PROVIDERS: PCP Family Medicine; Visit Provider Chiropractor
DX: I25.9 Chronic ischemic heart disease, unspecified (principal); I51.89 Other ill-defined heart diseases; I51.7 Cardiomegaly; Z95.0 Presence of cardiac pacemaker
CPT/HCPCS: 93306

== ENCOUNTER 2023-11-03 02:37 | Emergency (ER) | payer OTHER, SELFPAY ==
[2023-11-03 02:41] VITALS: BP 111/86; PULSE 87; RESP 18; TEMP 36.4; O2SAT 100; BMI 24.4
--- NOTE | 2023-11-03 02:42 | XRR_ITS ---
PROCEDURE INFORMATION: Exam: XR Chest Exam date and time: 11/03/2023 2:58 AM Age: 57 years old Clinical indication: Shortness of breath; Prior surgery; Surgery date: 6+ months; Surgery type: Pacer; Additional info: Dyspnea TECHNIQUE: Imaging protocol: Radiologic exam of the chest. Views: Portable upright AP chest x-ray, 1 view. COMPARISON: CR XR chest 1V portable [id number] 02/19/2023 7:46 AM FINDINGS: Tubes, catheters and devices: Left-sided pacemaker/AICD in place. Lungs: Subtle increased interstitial markings along the periphery and lung bases. No consolidation. Pleural spaces: No significant costophrenic angle blunting. No pneumothorax. Heart/Mediastinum: Heart size upper limits of normal given the portable AP technique. Bones/joints: Thoracic spondylosis and degenerative bony changes. XR/XR chest 1V portable [id number] IMPRESSION: Subtle increased interstitial markings along the periphery and lung bases suggestive of minimal or developing interstitial pulmonary edema.
--- NOTE | 2023-11-03 02:42 | ED_ITS ---
HPI - SOB/Dyspnea 2 General: Chief Complaint: Shortness of Breath/Dyspnea Stated Complaint: SOB Time Seen by Provider: 11/03/23 02:42 History of Present Illness: HPI Narrative: Patient presents to the ER with complaints shortness of breath started yesterday and is worsened throughout the night. Patient says worse than his normal shortness of breath. Patient says he has been much cold and chills all the time. Patient is been around no sick contacts. No chest pain, no nausea vomiting diarrhea, no edema. Patient has seen Dr. Guadalupe and Dr. Whitmore. He does have cardiomyopathy with ejection fraction of approximately 20%. He has an ICD in place, he has a history of hypertension tobacco abuse history of pulmonary embolism, sleep apnea, noncompliance, chronic kidney disease, glucose intolerance. Patient had pacemaker check on 10/26/2023, had an echo on 10/11/2023, showed EF of 20%, moderately dilated LV cavity, mild mitral regurg, unchanged from 09/23/2020 Review of Systems 2 General: Reports: 10 or more systems reviewed and unremarkable except in HPI and below PFSH ED 2 PFSH: Medical History Glucose intolerance CKD (chronic kidney disease) Sleep apnea ICD (implantable cardioverter-defibrillator), single, in situ HTN (hypertension) Pulmonary thromboembolism Cardiomyopathy GERD (gastroesophageal reflux disease) Surgical History AICD (automatic cardioverter/defibrillator) present History of back surgery (~1997) Family History Other Diabetes Hypertension Social History Smoking and tobacco/nicotine status: current every day tobacco/nicotine user Alcohol intake: current Alcohol intake frequency: other Physical Exam 2 Const: COMMON NORMALS: no acute distress, average body habitus, patient oriented x3, no limitations, healthy appearing, alert and well nourished HENMT: COMMON NORMALS: normocephalic, atraumatic, hearing grossly normal bilaterally, external ears normal, Normal external nose present and moist oral mucous membranes HEAD & SCALP: normocephalic and atraumatic NOSE: Normal external nose present EXTERNAL EAR: Yes external ears normal Neck/C-Spine: COMMON NORMALS: no JVD Chest: COMMONS NORMALS: normal inspection of the chest and normal palpation of entire chest wall Resp: COMMON NORMALS: normal respiratory effort, No retractions, No use of accessory muscles and clear to auscultation bilaterally AUSCULTATION: clear to auscultation bilaterally Cardio: COMMON NORMALS: no JVD, regular rate, regular rhythm, S1 normal heart sound present, S2 normal heart sound present, No gallops present (Cardio), No clicks present (Cardio), No murmurs present (Cardio) and No rub (Cardio) R ATE: regular rate RHYTHM: regular rhythm HEART SOUNDS: S1 normal heart sound present and S2 normal heart sound present GI: COMMON NORMALS: Normal to inspection, nondistended, normoactive bowel sounds present, Soft to palpation, non-tender, No hepatosplenomegaly present, no masses and no bruits PALPATION: Yes Soft to palpation and Yes No hepatosplenomegaly present Neuro: COMMON NORMALS: patient oriented x3 SENSORIUM/ORIENTATION: Yes alert Course 2 Vital Signs: Vital signs: Vital Signs Temperature 97.6 F 11/03/23 02:41 Pulse Rate 122 H 11/03/23 04:12 Respiratory Rate 18 11/03/23 04:12 Blood Pressure 111/86 11/03/23 02:41 Pulse Oximetry 99 11/03/23 04:12 Oxygen Delivery Me thod Room Air 11/03/23 04:12 MDM - SOB/Dyspnea Medical Decision Making Lab work was reviewed, patient BUN/creatinine is mildly elevated even for his normal at 26 and 2.6, chest x-ray shows subtle interstitial markings consistent with minimal or developing interstitial pulmonary edema, patient's BNP was elevated even above his normal this time it is approximately 30,000. Patient was given 60 Lasix IV and diuresed to full urinals and feels much better. Patient was given the option of inpatient treatment due to his elevated BNP and also his elevated creatinine but patient said [facility] with [facility] today. And patient will be following up with him shortly. Patient will be discharged to go to his [facility] appointment. Differential Diagnosis Likely congestive heart failure; Unlikely acute exacerbation of chronic obstructive airways disease, community acquired pneumonia, asthma with exacerbation or pulmonary embolism Medical Records I reviewed the patient's medical records. Lab Data I reviewed the patient's lab results. 11/03/23 02:47 11/03/23 02:47 Labs/Radiology: Radiology Impressions Chest X-Ray 11/03/23 02:42 IMPRESSION: Subtle increased interstitial markings along the periphery and lung bases suggestive of minimal or developing interstitial pulmonary edema. Laboratory Results WBC 8.18 10^3/uL (3.29-11.43) 11/03/23 02:47 RBC 4.48 10^6/uL (3.85-5.65) 11/03/23 02:47 Hgb 12.90 g/dL (11.27-16.99) 11/03/23 02:47 Hct 39.3 % (37-53) 11/03/23 02:47 MCV 87.7 fl (82-101) 11/03/23 02:47 MCH 28.8 pg (27-33) 11/03/23 02:47 MCHC 32.8 g/dL (30-55) 11/03/23 02:47 RDW 15.2 % (12.1-15.1) H 11/03/23 02:47 Plt Count 258 10^3/cmm (157-399) 11/03/23 02:47 MPV 9.2 fL (7.4-10.4) 11/03/23 02:47 Neut % (Auto) 66.9 % 11/03/23 02:47 Lymph % (Auto) 25.7 % 11/03/23 02:47 [place] % (Auto) 4.6 % 11/03/23 02:47 Eos % (Auto) 2.2 % 11/03/23 02:47 Baso % (Auto) 0.4 % 11/03/23 02:47 Neut # (Auto) 5.47 10^3/uL (1.8-7.7) 11/03/23 02:47 Lymph # (Auto) 2.1 10^3/uL (0.8-4.8) 11/03/23 02:47 [place] # (Auto) 0.4 10^3/uL (0.2-0.9) 11/03/23 02:47 Eos # (Auto) 0.2 10^3/uL (0.0-0.8) 11/03/23 02:47 Baso # (Auto) 0.0 10^3/uL (0.0-0.1) 11/03/23 02:47 Nucleated RBC % (auto) 0 % 11/03/23 02:47 Nucleated RBCs # 0.0 /100WBC 11/03/23 02:47 Specimen Type Arterial 11/03/23 04:17 Sample Site Radial, right 11/03/23 04:17 ABG pH 7.45 (7.35-7.45) 11/03/23 04:17 ABG pCO2 31.9 mmHg (35-45) L 11/03/23 04:17 ABG pO2 56.9 mmHg (80.0-100.0) L 11/03/23 04:17 ABG HCO3 22.1 mmol/L (22-26) 11/03/23 04:17 ABG O2 Saturation 90.9 11/03/23 04:17 ABG Base Excess -1.1 mmol/L (-2.0-2.0) 11/03/23 04:17 Trace Test Pos 11/03/23 04:17 A-a O2 Gradient 7.0 mmHg (5-10) 11/03/23 04:17 Hematocrit 41.1 % (42-52) L 11/03/23 04:17 Hgb O2 Saturation 88.0 % (95-100) L 11/03/23 04:17 Carboxyhemoglobin 3.0 %THgb (0.4-20.1) 11/03/23 04:17 Methemoglobin 0.1 % (0.4-1.5) L 11/03/23 04:17 Total Hemoglobin 13.4 g/dL (14-18) L 11/03/23 04:17 Sodium 140.0 mmol/L (131-143) 11/03/23 04:17 Potassium 4.3 mmol/L (3.5-5.0) 11/03/23 04:17 Glucose 122.0 mg/dL (70-115) H 11/03/23 04:17 Ionized Calcium 1.2 mmol/L (1.1-1.4) 11/03/23 04:17 O2 Delivery Device None 11/03/23 04:17 Class C Truck Driver ID Cl 11/03/23 04:17 Sodium 141 mmol/L (136-145) 11/03/23 02:47 Potassium 4.7 mmol/L (3.5-5.1) 11/03/23 02:47 Chloride 108 mmol/L (98-107) H 11/03/23 02:47 Carbon Dioxide 22 mmol/L (22-29) 11/03/23 02:47 Anion Gap 15.7 (5-19) 11/03/23 02:47 BUN 26 mg/dL (6-20) H 11/03/23 02:47 Creatinine 2.6 mg/dL (0.7-1.2) H 11/03/23 02:47 GFR Calculation 25.4 mL/min (90-130) L 11/03/23 02:47 Glucose 142 mg/dL (65-115) H 11/03/23 02:47 Calculated Osmolality 299 mOsm/kg (285-295) H 11/03/23 02:47 Calcium 8.9 mg/dL (8.5-10.5) 11/03/23 02:47 Magnesium 2.0 mg/dL (1.7-2.3) 11/03/23 02:47 Total Bilirubin 0.3 mg/dL (0.15-1.2) 11/03/23 02:47 AST 31 U/L (0-40) 11/03/23 02:47 ALT 33 U/L (0-41) 11/03/23 02:47 Alkaline Phosphatase 98 U/L (40-130) 11/03/23 02:47 Troponin T Baseline 107 ng/L (0-15) H* 11/03/23 02:47 Troponin T 120 Minute 100.8 ng/L (0-15) H 11/03/23 04:24 Delta Troponin T -6.2 ABS# (0-10) L 11/03/23 04:24 NT-Pro-B Natriuret Pep 34387 pg/mL (0-125) H 11/03/23 02:47 Total Protein 6.2 g/dL (6.6-8.7) L 11/03/23 02:47 Albumin 3.5 g/dL (3.5-5.2) 11/03/23 02:47 Globulin 2.7 g/dL (1.3-4.6) 11/03/23 02:47 Influenza Type A Ag Negative (Negative) 11/03/23 03:06 Influenza Type B Ag Negative (Negative) 11/03/23 03:06 SARS-CoV-2 Ag (Rapid) negative (Negative) 11/03/23 03:06 All radiology interpretation(s) finalized by discharge Discharge Plan Discharge Patient Disposition: Home Clinical Impression: Congestive heart failure Qualifiers: Heart failure type: unspecified Heart failure chronicity: acute on chronic Q ualified Code(s): I50.9 - Heart failure, unspecified CKD (chronic kidney disease) Qualifiers: Chronic kidney disease stage: unspecified stage Qualified Code(s): N18.9 - Chronic kidney disease, unspecified Condition: Stable Prescriptions: No Action Jardiance 10 mg tablet 10 mg PO DAILY carvedilol [Coreg] 25 mg tablet 25 mg PO DAILY Qty: 90 3RF Rx Instructions: must administer with a meal/food furosemide [Lasix] 20 mg tablet 40 mg PO DAILY spironolactone 50 mg tablet 50 mg PO QAM Qty: 90 0RF Lipitor 80 mg Tablet 80 mg PO BEDTIME aspirin 325 mg Tablet 325 mg PO BEDTIME Prilosec 20 mg Capsule,Delayed Release(Dr/Ec) 40 mg PO QAM albuterol sulfate 90 mcg/actuation Hfa Aerosol Inhaler 2 puff INHALATION QID PRN (Reason: Shortness Of Breath) lisinopril 40 mg Tablet 20 mg PO DAILY potassium chloride 20 mEq Tablet Extended Release 20 meq PO DAILY PRN (Reason: when taking lasix) magnesium oxide 400 mg magnesium tablet 400 mg PO BEDTIME Discharge Orders: Discharge ED (Routine); Ordered 11/03/23 Ordered By: Silver Cerrato Referrals: Danna Aj MD [Primary Care Provider] - 1 week Patient Instructions: Chronic Kidney Disease (ED), Congestive Heart Failure Activity Restrictions/Additional Instructions: Your evaluation in ER showed you have worsening congestive heart failure and worsening kidney function. Your BUN and creatinine was approximately 22 and 2.7 and your BNP was approximately 30,000, you are given 60 mg IV Lasix which produced good diuresis and made you feel better however this may be harder on your kidneys. You are given the option of admission to the hospital for further evaluation and testing however you declined at this time. Please keep your appointment with your [facility] doctor that is scheduled later today. They may want to change her medicines and/or do more testing. If your symptoms worsen please feel free to return to the ER. Coding Level of Care Code ED Bottom Worker for Jasmina Greco
--- NOTE | 2023-11-03 02:45 | ECG_ITS ---
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 Measurements Intervals [place] Rate: 86 P: 72 ME: 152 QRS: 66 QRSD: 102 T: 174 QT: 392 QTc: 471 Interpretive Statements SINUS RHYTHM POSSIBLE LEFT ATRIAL ENLARGEMENT [-0.1mV P-WAVE IN V1/V2] LEFT VENTRICULAR HYPERTROPHY AND ST-T CHANGE [VOLTAGE CRITERIA PLUS ST/T ABNORMALITY] Compared to ECG 02/19/2023 07:22:03 Sinus tachycardia no longer present Ventricular premature complex(es) no longer present ST (T wave) deviation still present Electronically Signed On 11-03-2023 10:33:46 CDT by Miguel Colin M.D. [id number]
[2023-11-03 02:57] LABS: Basophils % 0.4 %; Eosinophils # 0.2 10^3/uL (0.0-0.8); Eosinophils % 2.2 %; Hematocrit 39.3 % (37-53); Lymphocytes # 2.1 10^3/uL (0.8-4.8); Lymphocytes % 25.7 %; Mean Corpuscular HGB Conc 32.8 g/dL (30-55); Mean Corpuscular Hemoglobin 28.8 pg (27-33); Mean Corpuscular Volume 87.7 fl (82-101); Mean Platelet Volume 9.2 fL (7.4-10.4); Monocytes # 0.4 10^3/uL (0.2-0.9); Monocytes % 4.6 %; Neutrophils # 5.47 10^3/uL (1.8-7.7); Neutrophils % 66.9 %; Nucleated Red Blood Cells % 0 %; Platelet Count 258 10^3/cmm (157-399); Red Blood Count 4.48 10^6/uL (3.85-5.65); Red Cell Distribution Width 15.2 % (12.1-15.1); White Blood Count 8.18 10^3/uL (3.29-11.43)
[2023-11-03] MEDS: methylPREDNISolone sod succ 125 mg/2 mL INJ IVP (03:02)
[2023-11-03] MEDS: ipratropium-albuterol 3 mL Neb INHALATION (03:08)
[2023-11-03 03:11] VITALS: PULSE 86; RESP 18; O2SAT 97
[2023-11-03 03:18] LABS: Alanine Aminotransferase 33 U/L (0-41); Albumin Level 3.5 g/dL (3.5-5.2); Alkaline Phosphatase 98 U/L (40-130); Anion Gap 15.7 (5-19); Aspartate Amino Transferase 31 U/L (0-40); Blood Urea Nitrogen 26 mg/dL (6-20); Calcium 8.9 mg/dL (8.5-10.5); Carbon Dioxide 22 mmol/L (22-29); Chloride 108 mmol/L (98-107); Globulin 2.7 g/dL (1.3-4.6); Glomerular Filtration Rate 25.4 mL/min (90-130); Glucose 142 mg/dL (65-115); Osmolality Calculated 299 mOsm/kg (285-295); Potassium 4.7 mmol/L (3.5-5.1); Sodium 141 mmol/L (136-145); Total Bilirubin 0.3 mg/dL (0.15-1.2); Total Protein 6.2 g/dL (6.6-8.7)
[2023-11-03 03:19] LABS: Troponin(5th) Baseline 107 ng/L (0-15)
[2023-11-03 03:37] LABS: SARS Covid-2 Antigen negative (Negative)
[2023-11-03 03:40] LABS: Influenza A by IFA Negative (Negative); Influenza B by IFA Negative (Negative)
[2023-11-03 03:45] LABS: NT Pro B Type Natriuretic Pept 31460 pg/mL (0-125)
[2023-11-03 04:12] VITALS: PULSE 122; RESP 18; O2SAT 99
[2023-11-03] MEDS: levalbuterol 1.25 mg/3 mL Neb INHALATION (04:12)
[2023-11-03 04:25] LABS: ABG PCO2 31.9 mmHg (35-45); ABG PH Result 7.45 (7.35-7.45); Arterial Blood Gas Hematocrit 41.1 % (42-52); Base Excess ABG -1.1 mmol/L (-2.0-2.0); Blood Gas Allen Test Pos; Blood Gas Operator Identificat CL; Blood Gas Sample Site Radial, right; Blood Gas Sample Type Arterial; HCO3 ABG 22.1 mmol/L (22-26); Ionized Calcium Level - ABG 1.2 mmol/L (1.1-1.4); Methemoglobin 0.1 % (0.4-1.5); Oxygen Saturation ABG 90.9; PO2 ABG 56.9 mmHg (80.0-100.0); Potassium Level - ABG 4.3 mmol/L (3.5-5.0); Total Hemoglobin 13.4 g/dL (14-18)
[2023-11-03] MEDS: FUROsemide 10 mg/mL SDV 10mL 60 MG IVP (04:26)
[2023-11-03 04:58] LABS: Troponin 5 2HR Delta -6.2 ABS# (0-10)
[2023-11-03 05:06] LABS: Troponin 5 2HR 100.8 ng/L (0-15)
[2023-11-03 06:31] VITALS: PULSE 98; RESP 18; O2SAT 94
[2023-11-03 06:42] VITALS: BP 114/70; PULSE 88; RESP 18; O2SAT 98
== END 2023-11-03 06:43 | disposition home or self-care (01) ==
PROVIDERS: Emergency Provider Emergency Medicine; PCP Family Medicine
DX: I12.9 Hypertensive chronic kidney disease with stage 1 through stage 4 chronic kidney disease, or unspecified chronic kidney disease (principal); N18.9 Chronic kidney disease, unspecified; Z95.810 Presence of automatic (implantable) cardiac defibrillator; I11.9 Hypertensive heart disease without heart failure; I43 Cardiomyopathy in diseases classified elsewhere; Z72.0 Tobacco use; Z79.82 Long term (current) use of aspirin
CPT/HCPCS: 36600; 71045; 80051; 80053; 82330; 82805; 83735; 83880; 84484; 85025; 87426; 87804; 93005; 94640; 96374; 96375; 99285; J1940; J2919; J7614

== ENCOUNTER 2024-07-07 15:03 | Outpatient (CLI) | payer OTHER, SELFPAY ==
--- NOTE | 2024-07-07 15:05 | US_ITS ---
WS: [id number] ULTRASOUND RENAL TECHNIQUE: Ultrasound examination of both kidneys. CLINICAL INFORMATION: CHRONIC RENAL FAILURE COMPARISON: Ultrasound 2021 FINDINGS: RIGHT: Right kidney is normal in size and appearance. Echogenicity: Normal. Cortical thickness: 1.2 cm; Normal. Hydronephrosis: None. Perinephric fluid: None. Right kidney measures: 11.6 cm x 4.8 cm x 4.8 cm. LEFT: LEFT kidney cannot be visualized Normal visualized aorta. Bladder is decompressed US/US renal BI* [id number] IMPRESSION: Technically difficult study due to bowel gas and body habitus. 1. RIGHT kidney is normal in appearance where visualized. 2. No hydronephrosis in the RIGHT kidney. 3. LEFT kidney cannot be visualized due to bowel gas. 4. Bladder is decompressed.
== END 2024-07-07 15:04 | disposition home or self-care (01) ==
PROVIDERS: PCP Family Medicine; Visit Provider Family Medicine
DX: Z01.89 Encounter for other specified special examinations (principal)
CPT/HCPCS: 76770

== ENCOUNTER 2024-07-13 07:55 | Outpatient (CLI) | payer OTHER, SELFPAY ==
--- NOTE | 2024-07-13 07:58 | CT_ITS ---
WS: [id number] CT chest wo con [id number] HISTORY: RLL NODULE TECHNIQUE: Axial imaging performed through the thorax. Coronal and sagittal reformats are submitted. All CT scans at [facility] use at least one of these dose optimization techniques: automated exposure control; mA and/or kV adjustment per patient size (includes targeted exams where dose is matched to clinical indication); or iterative reconstruction. CONTRAST: None DLP: 425.80 mGy.cm COMPARISON: 10/29/2016, 06/20/2020 Lungs and central airway: Moderate pulmonary hyperinflation with centrilobular emphysema. Well-circumscribed RIGHT middle lobe pulmonary nodule measuring 2.5 x 1.7 x 2.4 cm. This nodule abuts the mediastinum and pericardial fat. Additional masses. Mild early changes of bronchiectasis in the upper lobes. Pleura: Normal. No pleural effusion. Heart and pericardium: Mild cardiomegaly. LEFT subclavian defibrillator. Mediastinum and santino: Hilar regions are limited without IV contrast. There are several lymph nodes in the mediastinum which are similar in appearance to 06/20/2020. Largest lymph node is 1.7 cm RIGHT infrahilar. Vessels: Mild atherosclerosis aorta Pulmonary artery mildly dilated at 3.3 cm. Chest wall and lower neck: Small axillary lymph nodes. Upper abdomen: Small hiatal hernia. No adrenal mass. Upper pole of the LEFT kidney appears mildly atrophic. Suprarenal aortic calcifications. Osseous structures: Advanced hypertrophic osteophytes along the RIGHT lateral thoracic vertebral bodies. No destructive bone lesions. CT/CT chest wo con [id number] IMPRESSION: 1. New RIGHT middle lobe pulmonary nodule abutting the pericardial fat measure s 2.5 x 1.7 x 2.4 cm. Recommend follow-up PET/CT imaging at this time. Pulmonar y neoplasm needs to be excluded. 2. Mediastinal and hilar lymph nodes similar to the prior study from 2020. 3. Chronic emphysema. 4. LEFT subclavian defibrillator. 5. Mild pulmonary hypertension.
== END 2024-07-13 07:56 | disposition home or self-care (01) ==
PROVIDERS: PCP Family Medicine; Visit Provider Family Medicine
DX: R91.1 Solitary pulmonary nodule (principal); R59.0 Localized enlarged lymph nodes; Z96.89 Presence of other specified functional implants; I27.20 Pulmonary hypertension, unspecified; R91.8 Other nonspecific abnormal finding of lung field; J43.2 Centrilobular emphysema; J47.9 Bronchiectasis, uncomplicated; I51.7 Cardiomegaly; I70.0 Atherosclerosis of aorta; I28.1 Aneurysm of pulmonary artery; K44.9 Diaphragmatic hernia without obstruction or gangrene; R93.422 Abnormal radiologic findings on diagnostic imaging of left kidney; R93.89 Abnormal findings on diagnostic imaging of other specified body structures; M25.78 Osteophyte, vertebrae
CPT/HCPCS: 71250

== ENCOUNTER 2024-09-01 14:27 | Outpatient (CLI) | payer OTHER, SELFPAY ==
--- NOTE | 2024-09-01 16:32 | PETR_ITS ---
PROCEDURE INFORMATION: Exam: PET/CT Skull Base to Mid-thigh Exam date and time: 09/01/2024 3:23 PM Age: 58 years old Clinical indication: Condition or disease; Condition/disease: Lung nodule; Prior surgery; Surgery date: 6+ months; Surgery type: Pacemaker LABS AND CLINICAL REPORTS: Glucose: 78 mg/dl Treatment strategy for malignancy (PET staging): Initial Staging (PI) TECHNIQUE: Imaging protocol: Following at least four-hour fasting and following the injection of radiopharmaceutical, low dose CT images were obtained. Then, PET images were obtained. Attenuation corrected images were constructed using the CT scan. Fused images of PET and CT were reviewed. The standardized uptake values (SUV) reported below are maximum values within a region of interest, expressed in gm/ml. Exam includes orbital meatal line to mid-thigh. SUV normalization method: BodyWeight Radiopharmaceutical: 10.19 mCi F-18 FDG (Fluorodeoxyglucose), IV. Time of imaging post radiopharmaceutical administration: 48 minutes Injection site: right ac COMPARISON: 1. CT chest wo con [id number] 07/13/2024 8:[address] angio chest PE protcl [id number] 06/20/2020 1:10 PM FINDINGS: Tubes, catheters and devices: Single lead cardiac device with left chest generator. Brain: Visualized brain has normal physiologic uptake. Pharynx: No abnormal uptake. Larynx: No abnormal uptake. Lungs, pleura and trachea: Mild upper lung predominant emphysematous change. Intervally stable 2.7 x 1.8 cm medial right middle lobe nodule shows very low-level thin peripheral FDG uptake with SUV max 1.9 on axial image 132 at the right anterolateral aspect. Remainder of the nodule is largely photopenic with attenuation averaging 30 Hounsfield units. Heart: Normal physiologic uptake. Left ventricular dilatation. Mediastinal space: No abnormal uptake. Liver: No abnormal uptake. Gallbladder and biliary ducts: No abnormal uptake. Pancreas: No abnormal uptake. Spleen: No abnormal uptake. Adrenal glands: No abnormal uptake. Kidneys and ureters: Normal physiologic uptake. Mild left renal atrophy. Stomach and bowel: Short-segment relative thickening of underdistended proximal sigmoid colon on axial image 238 shows SUV max 11.3. Less FDG avid multifocal segmental small and large bowel uptake without underlying CT abnormality is likely physiologic or inflammatory. Colonic diverticulosis without findings of diverticulitis. Vasculature: No abnormal uptake. Moderate systemic atherosclerotic calcification without aortic aneurysm. Lymph nodes: Low-level uptake at couple of stable sized mediastinal nodes and bilateral santino without discretely measurable node, index lower right paratracheal node showing SUV max 3.1. Skeleton: Degenerative changes along the axial skeletal system and both shoulders with likely inflammatory low-level right glenohumeral joint periarticular uptake. Soft tissues: No abnormal uptake in the visualized head, neck, chest, abdomen, pelvis, and extremities. Moderate left inguinal hernia containing nondilated, non thickened bowel loop. METRICS: Mediastinal blood pool: SUV mean 1.7 Liver uptake: SUV mean 2.2 PET/PET skull to thigh INIT [id number] IMPRESSION: 1. 2.7 cm medial right middle lobe nodule shows very low-level thin peripheral FDG uptake with central photopenia. This could represent benign solid nodule or complex cystic lesion, malignancy difficult to entirely exclude. Consider continued chest CT follow-up versus tissue sampling. 2. Low-level uptake at stable nonenlarged mediastinal nodes and bilateral santino favors benign reactive or granulomatous etiology. 3. Short-segment relative thickening of underdistended proximal sigmoid colon with associated FDG uptake. This could be physiologic or possibly inflammatory, malignancy not excluded. Consider colonoscopy. 4. Additional chronic and incidental findings as above.
== END 2024-09-01 14:28 | disposition home or self-care (01) ==
LOC: RAD 14:27
PROVIDERS: PCP Family Medicine; Visit Provider Family Medicine
DX: R91.1 Solitary pulmonary nodule (principal); Z96.89 Presence of other specified functional implants; J43.9 Emphysema, unspecified; I51.7 Cardiomegaly; N26.1 Atrophy of kidney (terminal); K63.89 Other specified diseases of intestine; K57.30 Diverticulosis of large intestine without perforation or abscess without bleeding; I70.0 Atherosclerosis of aorta; R59.0 Localized enlarged lymph nodes; M47.9 Spondylosis, unspecified; M19.012 Primary osteoarthritis, left shoulder; M19.011 Primary osteoarthritis, right shoulder; K40.90 Unilateral inguinal hernia, without obstruction or gangrene, not specified as recurrent
CPT/HCPCS: 78815; A9552

== ENCOUNTER → 2024-12-20 12:50 | Outpatient (BNVA) | payer OTHER, SELFPAY | PROVIDERS: PCP Family Medicine; Visit Provider Internal Medicine | DX: Z45.02 Encounter for adjustment and management of automatic implantable cardiac defibrillator (principal) | CPT/HCPCS: 93296 ==

== ENCOUNTER 2025-01-19 18:51 | Emergency (ER) | payer OTHER, SELFPAY ==
[2025-01-19] VITALS (11 sets, daily range): BP systolic 126–153; BP diastolic 88–102; PULSE 89–100; RESP 17–20; TEMP 36.9; O2SAT 90–100
--- NOTE | 2025-01-19 18:54 | XRR_ITS ---
PROCEDURE INFORMATION: Exam: XR Chest Exam date and time: 01/19/2025 7:36 PM Age: 59 years old Clinical indication: Shortness of breath; Additional info: SOB TECHNIQUE: Imaging protocol: Radiologic exam of the chest. Views: 1 view. COMPARISON: CR XR chest 1V portable [id number] 11/03/2023 2:58 AM FINDINGS: Tubes, catheters and devices: Left subclavian transvenous AICD/pacer is in expected position. Lungs: Lungs are hyperinflated. Clear parenchyma. Pleural spaces: No pleural effusion. No pneumothorax. Heart/Mediastinum: Cardiac silhouette is normal in size for technique. Bones/joints: Age appropriate. XR/XR chest 1V portable [id number] IMPRESSION: Hyperinflated but clear lungs. No other acute cardiopulmonary abnormality.
--- NOTE | 2025-01-19 18:54 | ECG_ITS ---
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[id number] Requested By: Aries Fernandez Order Number: [id number] MD: AGUILAR HERNANDEZ Measurements Intervals [place] Rate: 89 P: 72 FL: 164 QRS: 72 QRSD: 105 T: 188 QT: 371 QTc: 452 Interpretive Statements SINUS RHYTHM POSSIBLE LEFT ATRIAL ENLARGEMENT [-0.1mV P-WAVE IN V1/V2] ST DEVIATION AND MODERATE T-WAVE ABNORMALITY, CONSIDER LATERAL ISCHEMIA [-0.1+ mV T-WAVE IN I/aVL/V5/V6] ST DEVIATION AND MODERATE T-WAVE ABNORMALITY, CONSIDER INFERIOR ISCHEMIA [-0.1+ mV T-WAVE IN II/aVF] Compared to ECG 11/03/2023 02:45:56 T-wave abnormality now present Possible ischemia now present Left ventricular hypertrophy no longer present ST (T wave) deviation no longer present Electronically Signed On 01-21-2025 23:14:49 CDT by AGUILAR HERNANDEZ [id number]
[2025-01-19 19:54] LABS: Troponin(5th) Baseline 94 ng/L (0-15)
[2025-01-19 20:11] LABS: Hematocrit 43.4 % (37-53); Hemoglobin 13.80 g/dL (11.27-16.99); Mean Corpuscular HGB Conc 31.8 g/dL (30-55); Mean Corpuscular Hemoglobin 29.2 pg (27-33); Mean Corpuscular Volume 91.9 fl (82-101); Nucleated Red Blood Cells % 0 %; Platelet Count 238 10^3/cmm (157-399); Red Blood Count 4.72 10^6/uL (3.85-5.65); White Blood Count 10.77 10^3/uL (3.29-11.43)
[2025-01-19 20:14] LABS: Alanine Aminotransferase 29 U/L (0-41); Albumin Level 3.9 g/dL (3.5-5.2); Alkaline Phosphatase 103 U/L (40-130); Anion Gap 15.8 (5-19); Aspartate Amino Transferase 34 U/L (0-40); Blood Urea Nitrogen 25 mg/dL (8-23); Calcium 9.6 mg/dL (8.5-10.5); Carbon Dioxide 25 mmol/L (22-29); Chloride 102 mmol/L (98-107); Globulin 2.8 g/dL (1.3-4.6); Glucose 143 mg/dL (65-115); Osmolality Calculated 293 mOsm/kg (285-295); Potassium 4.8 mmol/L (3.5-5.1); Sodium 138 mmol/L (136-145); Total Protein 6.7 g/dL (6.6-8.7)
[2025-01-19 20:16] LABS: Creatinine Clr Calc Pharmacy 50.6787; Lactic Sepsis W/Reflex 1.4 mmol/L (0.5-2.2)
[2025-01-19 21:28] LABS: Respiratory Syncytial Virus Ce NEGATIVE (Negative); SARS-CoV-2 PCR NEGATIVE (Negative)
[2025-01-19 21:28] LABS: Troponin 5 2HR 95.94 ng/L (0-15); Troponin 5 2HR Delta 1.94 ABS# (0-10)
[2025-01-19] MEDS: methylPREDNISolone sod succ 125 mg/2 mL INJ 80 MG IVP (21:56)
[2025-01-19] MEDS: FUROsemide 10 mg/mL SDV 10mL 60 MG IVP (21:56)
--- NOTE | 2025-01-19 22:32 | ED_ITS ---
HPI - SOB/Dyspnea 2 General: Chief Complaint: Shortness of Breath/Dyspnea Stated Complaint: SOB Time Seen by Provider: 01/19/25 21:22 History of Present Illness: HPI Narrative: Patient is a 59-year-old male presenting with shortness of breath that began last night. He reports this is the first time he has experienced this symptom. The patient endorses productive cough with white sputum and wheezing. He denies fever, chest pain, or ankle swelling. Patient states he has been taking his regular medications including inhalers, though it is unclear if he has used them specifically for this acute episode. He denies being around anyone who has been sick recently. The patient has a known history of congestive heart failure and diabetes mellitus. Related Data Home Medications ?Medication ?Instructions ?Recorded ?Confirmed albuterol sulfate 90 mcg/actuation 2 puff inhalation Q ID PRN 02/19/23 08/03/23 aerosol inhaler Shortness Of Breath aspirin 325 mg tablet 325 mg PO BEDTIME 02/19/23 0 08/03/23 atorvastatin 80 mg tablet (Lipitor) 80 mg PO BEDTIME 1 04/21/22 08/03/23 lisinopril 40 mg tablet 20 mg PO DAILY 02/19/2307/12 magnesium oxide 400 mg PO BEDTIME 02/19/23 0 08/03/23 omeprazole 20 mg capsule,delayed 40 mg PO QAM 02/19/23 08/03/23 release potassium chloride 20 mEq 20 meq PO DAILY PRN when [place] ing 02/19/23 03/05/23 tablet,extended release lasix empagliflozin 10 mg tablet 10 mg PO DAILY 03/02/23 (Jardiance) furosemide 20 mg tablet (Lasix) 40 mg PO DAILY 4 Previous Rx's ?Medication ?Instructions ?Recorded carvedilol 25 mg tablet (Coreg) 25 mg PO DAILY #90 tab s 03/02/23 spironolactone 50 mg tablet 50 mg PO QAM #90 tabs 04/14 doxycycline hyclate 100 mg tablet 100 mg PO BID 7 days #14 tabs 01/19/25 methylprednisolone 4 mg tablets in See Rx Instructions PO .COMPLEX 01/19/25 a dose pack (Medrol (Gentry)) #21 ea Allergies Allergy/AdvReac Type Severity Reaction Status Date / Time No Known Allergies Allergy Verified 11/03/23 02:44 [facility] ED 2 [facility]: Medical History (Updated 01/19/25 @ 23:24 by Aries Spangler DO) Glucose intolerance CKD (chronic kidney disease) Sleep apnea ICD (implantable cardioverter-defibrillator), single, in situ HTN (hypertension) Pulmonary thromboembolism Cardiomyopathy GERD (gastroesophageal reflux disease) Surgical History AICD (automatic cardioverter/defibrillator) present History of back surgery (~1997) Family History Other Diabetes Hypertension Social History Smoking and tobacco/nicotine status: current every day tobacco/nicotine user Alcohol intake: current Alcohol intake frequency: other Course 2 Vital Signs: Vital signs: Vital Signs Temperature 98.5 F 01/19/25 18:55 Pulse Rate 99 01/19/25 23:33 Respiratory Rate 18 01/19/25 22:13 Blood Pressure 126/100 01/19/25 23:33 Pulse Oximetry 98 01/19/25 23:33 Oxygen Delivery Me thod Room Air 01/19/25 22:13 MDM - SOB/Dyspnea Medical Decision Making 1. Acute Shortness of Breath with Wheezing: - Likely acute exacerbation of congestive heart failure vs. acute bronchitis/pneumonia - Will review chest X-ray to evaluate for pulmonary edema, infiltrates, or other pathology - Consider initiating nebulizer treatments for wheezing - Monitor oxygen saturation and respiratory status 2. Congestive Heart Failure: - Assess volume status and optimize heart failure medications - Consider diuresis if evidence of fluid overload on exam or imaging - Will determine need for admission vs. discharge after reviewing chest X-ray and response to initial interventions On reexamination, room air saturations are 97 to 99%. He is feeling much better. He had significant diuresis after IV Lasix. He is better after breathing treatment as well. He is given Solu-Medrol. CBC is normal. Creatinine is 1.8 which is stable for the patient. Chest x-ray shows hyperinflated but clear lungs without infiltrate or edema. Swabs are negative for COVID flu and RSV. His delta troponin at 2 hours is 2. His BNP is stable from prior. With improvement in his symptoms, the patient would like to go home. He was offered admission, but rather go home since he is feeling better. He will go home on a tapering dose of steroid, breathing treatments. Antibiotic coverage. No return for any worsening symptoms. Currently stable for discharge. Lab Data 01/19/25 19:14 01/19/25 19:14 Labs/Radiology: Radiology Impressions Chest X-Ray 01/19/25 18:54 IMPRESSION: Hyperinflated but clear lungs. No other acute cardiopulmonary abnormality. Laboratory Results WBC 10.77 10^3/uL (3.29-11.43) 01/19/25 19:14 RBC 4.72 10^6/uL (3.85-5.65) 01/19/25 19:14 Hgb 13.80 g/dL (11.27-16.99) 01/19/25 19:14 Hct 43.4 % (37-53) 01/19/25 19:14 MCV 91.9 fl (82-101) 01/19/25 19:14 MCH 29.2 pg (27-33) 01/19/25 19:14 MCHC 31.8 g/dL (30-55) 01/19/25 19:14 RDW 14.1 % (12.1-15.1) 01/19/25 19:14 Plt Count 238 10^3/cmm (157-399) 01/19/25 19:14 MPV 10.3 fL (7.4-10.4) 01/19/25 19:14 Neut % (Auto) 72.9 % 01/19/25 19:14 Lymph % (Auto) 20.1 % 01/19/25 19:14 Prentiss % (Auto) 4.6 % 01/19/25 19:14 Eos % (Auto) 1.8 % 01/19/25 19:14 Baso % (Auto) 0.4 % 01/19/25 19:14 Neut # (Auto) 7.85 10^3/uL (1.8-7.7) H 01/19/25 19:14 Lymph # (Auto) 2.2 10^3/uL (0.8-4.8) 01/19/25 19:14 Prentiss # (Auto) 0.5 10^3/uL (0.2-0.9) 01/19/25 19:14 Eos # (Auto) 0.2 10^3/uL (0.0-0.8) 01/19/25 19:14 Baso # (Auto) 0.0 10^3/uL (0.0-0.1) 01/19/25 19:14 Nucleated RBC % (auto) 0 % 01/19/25 19:14 Nucleated RBCs # 0.0 /100WBC 01/19/25 19:14 Sodium 138 mmol/L (136-145) 01/19/25 19:14 Potassium 4.8 mmol/L (3.5-5.1) 01/19/25 19:14 Chloride 102 mmol/L (98-107) 01/19/25 19:14 Carbon Dioxide 25 mmol/L (22-29) 01/19/25 19:14 Anion Gap 15.8 (5-19) 01/19/25 19:14 BUN 25 mg/dL (8-23) H 01/19/25 19:14 Creatinine 1.8 mg/dL (0.7-1.2) H 01/19/25 19:14 GFR Calculation 38.6 mL/min (90-130) L 01/19/25 19:14 Glucose 143 mg/dL (65-115) H 01/19/25 19:14 Calculated Osmolality 293 mOsm/kg (285-295) 01/19/25 19:14 Lactic Acid 1.4 mmol/L (0.5-2.2) 01/19/25 19:14 Calcium 9.6 mg/dL (8.5-10.5) 01/19/25 19:14 Total Bilirubin 0.5 mg/dL (0.15-1.2) 01/19/25 19:14 AST 34 U/L (0-40) 01/19/25 19:14 ALT 29 U/L (0-41) 01/19/25 19:14 Alkaline Phosphatase 103 U/L (40-130) 01/19/25 19:14 Troponin T Baseline 94 ng/L (0-15) H 01/19/25 19:14 Troponin T 120 Minute 95.94 ng/L (0-15) H 01/19/25 20:58 Delta Troponin T 1.94 ABS# (0-10) 01/19/25 20:58 NT-Pro-B Natriuret Pep 88736 pg/mL (0-125) H 01/19/25 20:58 Total Protein 6.7 g/dL (6.6-8.7) 01/19/25 19:14 Albumin 3.9 g/dL (3.5-5.2) 01/19/25 19:14 Globulin 2.8 g/dL (1.3-4.6) 01/19/25 19:14 Influenza A (PCR) Negative (Negative) 01/19/25 20:40 Influenza Type B (PCR) Negative (Negative) 01/19/25 20:40 RSV (PCR) Negative (Negative) 01/19/25 20:40 SARS-CoV-2 (PCR) Negative (Negative) 01/19/25 20:40 All radiology interpretation(s) finalized by discharge Discharge Plan Discharge Patient Disposition: Home Clinical Impression: Acute bronchitis Condition: Stable Prescriptions: New methylprednisolone [Medrol (Gentry)] 4 mg tablets,dose pack See Rx Instructions .ROUTE .COMPLEX Qty: 21 0RF Rx Instructions: orally per package directions doxycycline hyclate 100 mg tablet 100 mg PO BID 7 Days Qty: 14 0RF No Action Jardiance 10 mg tablet 10 mg PO DAILY carvedilol [Coreg] 25 mg tablet 25 mg PO DAILY Qty: 90 3RF Rx Instructions: must administer with a meal/food furosemide [Lasix] 20 mg tablet 40 mg PO DAILY spironolactone 50 mg tablet 50 mg PO QAM Qty: 90 0RF Lipitor 80 mg Tablet 80 mg PO BEDTIME aspirin 325 mg Tablet 325 mg PO BEDTIME Prilosec 20 mg Capsule,Delayed Release(Dr/Ec) 40 mg PO QAM albuterol sulfate 90 mcg/actuation Hfa Aerosol Inhaler 2 puff INHALATION QID PRN (Reason: Shortness Of Breath) lisinopril 40 mg Tablet 20 mg PO DAILY potassium chloride 20 mEq Tablet Extended Release 20 meq PO DAILY PRN (Reason: when taking lasix) magnesium oxide 400 mg magnesium tablet 400 mg PO BEDTIME Discharge Orders: Discharge ED (Routine); Ordered 01/19/25 Ordered By: Aries Spangler Referrals: Danna Aj MD [Primary Care Provider, Family Practice] - 1-3 days Patient Instructions: Acute Bronchitis (ED), Opioid Safety, Pain Management, Patient Portal & Abiodun Instructions Activity Restrictions/Additional Instructions: Use your inhaler every 4 hours while awake for the first 48 hours for the feel you needed or not, then as needed following that. Other medications as directed. Return for any problems. Call your doctor Wednesday for a follow-up appointment. 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
[2025-01-19 22:36] LABS: NT Pro B Type Natriuretic Pept 20094 pg/mL (0-125)
== END 2025-01-19 23:46 | disposition home or self-care (01) ==
PROVIDERS: Emergency Provider Emergency Medicine; PCP Family Medicine
DX: J20.9 Acute bronchitis, unspecified (principal); Z79.82 Long term (current) use of aspirin; Z11.52 Encounter for screening for COVID-19; Z72.0 Tobacco use; E11.22 Type 2 diabetes mellitus with diabetic chronic kidney disease; I13.0 Hypertensive heart and chronic kidney disease with heart failure and stage 1 through stage 4 chronic kidney disease, or unspecified chronic kidney disease; N18.9 Chronic kidney disease, unspecified; I50.9 Heart failure, unspecified
CPT/HCPCS: 36415; 71045; 80053; 83605; 83880; 84484; 85025; 87040; 87637; 93005; 94640; 96374; 96375; 99285; J1938; J2919; J9999